=== PATIENT | male | born 1930 | race Caucasian/White ===

== ENCOUNTER 2017-02-04 10:49 | Inpatient (IN) | payer OTHER, MEDICARE ==
[~2017-02-04] VITALS: Ht 160 cm; Wt 72.6 kg
[~2017-02-04 10:49] MED LIST: ACTOS30 M1 PO; ALLOPURINOL300 M1 PO; ASPIR LOW81 MG PO; CHLORTHALIDONE25 M1 PO; CLONAZEPAM0.5 M2 PO; CLOPIDOGREL75 MG PO; COLACE100 MG PO; FERROUS SULFAT325 M2 PO; FLUTICASONE PRO16 GM NASB; FOLIC ACID PO; FOLIC ACID1 M1 PO; LASIX20 MG PO; LASIX40 M1 PO; LEVOXYL50 MCG PO; LISINOPRIL20 MG PO; MAGNESIUM500 M2 PO; METFORMIN HCL500 M2 PO; OMEPRAZOLE20 M2 PO; PREVACID30 M1 PO; PROCERA PO; SIMVASTATIN10 M1 PO; SIMVASTATIN20 MG PO; TYLENOL325 M1 PO; VITAMIN B12500 MCG PO; VITAMIN C1000 M1 PO; VITAMIN C500 M6 PO; VITAMIN C60 MG PO; WARFARIN SODIUM5 MG PO; ZESTRIL10 M1 PO
--- NOTE | 2017-02-04 10:52 | ED GI/GU/ABDOMINAL COMPLAINT ---
History of Present Illness General Chief Complaint: General Adult Stated Complaint: BIBA, CONSTIPATION Source: patient, old records, EMS, friend Exam Limitations: no limitations Vital Signs & Intake/Output Vital Signs & Intake/Output Vital Signs Date Time Temp Pulse Resp B/P B/P Pulse O2 O2 Flow FiO2 Mean Ox Delivery Rate 02/04 1352 98.3 60 16 122/65 09 Room Air 02/04 1244 98 Room Air 02/04 1058 97.1 74 17 128/61 94 Room Air Allergies Coded Allergies: NO KNOWN ALLERGIES (04/25/16) Reconcile Medications Allopurinol 300 MG TABLET 1 TAB PO DAILY GOUT (Reported) Clonazepam 0.5 MG TABLET 0.5 TAB PO BID ANXIETY (Reported) Fluticasone Propionate 50 MCG/ACTUATION SPRAY.SUSP 2 SPRAY NASB DAILY ALLERGIES (Reported) Folic Acid 1 MG TABLET 1 TAB PO DAILY VITAMIN SUPPORT (Reported) Levothyroxine Sodium (Levoxyl) 50 MCG TABLET 1 TAB PO DAILY THYROID (Reported ) Metformin HCl (Metformin HCl ER) 500 MG TAB.ER.24 1 TAB PO DAILY DIABETES ( Reported) Omeprazole 20 MG CAPSULE.DR 1 CAP PO DAILY GI (Reported) Pioglitazone HCl (Actos) 30 MG TABLET 1 TAB PO DAILY DIABETES (Reported) Polyethylene Glycol 3350 (Miralax) 17 GRAM POWD.PACK 17 GM PO DAILY PRN CONSTIPATION Simvastatin (Simvastatin*) 10 MG TABLET 1 TAB PO QPM CHOLESTEROL (Reported) Triage Nurses Notes Reviewed? yes Onset: Abrupt Duration: day(s): (3) Quality/Severity: mild, moderate Location: RECTAL No Modifying Factors: none Associated Symptoms: CONSTIPATION, BLOOD IN STOOL HPI: This is an 86-year-old male with history of A. fib, esophageal CA untreated who presents by ambulance from home for chief complaint of no bowel movement for at least 3 days. According to a family friend he reported blood in his stool last week. He denies any nausea or vomiting. He last ate this morning. He denies any changes appetite. No chest pressure as of breath. He states he is not passing any flatus from below. History of inguinal hernia repair but no other abdominal surgeries. Past History Travel History Traveled to [place] past 21 day No Medical History Any Pertinent Medical History? see below for history Neurological: dizziness, TIA, vertigo, PERIPHERAL NERVE DISEASE EENT: cataracts Cardiovascular: AFIB, hypertension, hyperlipidemia, mitral regurgitation, TR HEART MURMUR CARDIOVERSION Respiratory: pneumonia Gastrointestinal: hiatal hernia, ESOPHAGITIS diverticulosis coli hx colon polyps Hepatic: NONE Renal: RENAL FAILURE SYNDROME resolved post ACEI/Bactrim Musculoskeletal: gout Psychiatric: anxiety, depression, PANIC ATTACKS Endocrine: diabetes, hypothyroidism Blood Disorders: anemia, hx mixed Fe/B12 deficiency macrocytosis; ? 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 No Review of Systems Review of Systems Constitutional: Denies: chills, fever. EENTM: Reports: no symptoms. Respiratory: Denies: cough, short of breath, sputum production. Cardiovascular: Denies: chest pain, palpitations, peripheral edema, syncope. GI: Reports: abdominal pain, constipation. Genitourinary: Reports: no symptoms. Musculoskeletal: Reports: no symptoms. Skin: Reports: no symptoms. Neurological/Psychological: Denies: anxiety, ataxia. Hematologic/Endocrine: Reports: bleeding. Immunologic/Allergic: Reports: no symptoms. All Other Systems: Reviewed and Negative Physical Exam Physical Exam General Appearance: well developed/nourished, alert, awake, anxious, mild distress Head: atraumatic, normal appearance Eyes: Bilateral: PERRL, EOMI. Ears, Nose, Throat, Mouth: hearing grossly normal, moist mucous membrane Respiratory: normal breath sounds, chest non-tender, no respiratory distress Cardiovascular: regular rate/rhythm Peripheral Pulses: 2+ radial (R), 2+ radial (L) Gastrointestinal: soft, TYMPANIC, DISTENDED Rectal: BROWN STOOL, GUIAC NEGATIVE Neurologic/Psych: awake, alert, oriented x 3 Core Measures ACS in differential dx? No Severe Sepsis Present: No Septic Shock Present: No Progress Differential Diagnosis: bowel obstruction, metastatic disease Plan of Care: Orders Procedure Date/time Status Heart Healthy Diet 02/04 D Active Patient Data 02/04 144 Active Admit to inpatient 02/04 1427 Active Vital Signs 05/08 1427 Active Code Status 02/04 1427 Active LACTIC ACID 02/04 1355 Active Intake & Output 02/04 1343 Active URINALYSIS 02/04 105 Complete TROPONIN LEVEL 02/04 1055 Complete PARTIAL THROMBOPLASTIN TIME 02/04 105 Complete PROTHROMBIN TIME 02/04 105 Complete LACTIC ACID 02/04 105 Complete COMPREHENSIVE METABOLIC PANEL 02/04 1055 Complete CBC WITHOUT DIFFERENTIAL 02/04 1055 Complete EKG 02/04 105 Active TYPE & SCREEN (NOT X-MATCH) 02/04 105 Active Laboratory Tests 02/04/17 1335: Urine Color YEL, Urine Clarity CLEAR, Urine pH 7.0, Ur Specific [place] 1.010, Urine Protein NEG, Urine Ketones NEG, Urine Nitrite NEG, Urine Bilirubin NEG, Urine Urobilinogen 0.2, Ur Leukocyte Esterase NEG, Ur Microscopic SEDIMENT EXAMINED, Urine RBC 1-3, Urine WBC RARE, Ur Epithelial Cells RARE, Urine Hemoglobin TRACE-LYSED H, Urine Glucose NEG 02/04/17 1154: Anion Gap 14, Estimated GFR > 60, BUN/Creatinine Ratio 27.0 H, Glucose 187 H, Lactic Acid 1.6, Calcium 9.4, Total Bilirubin 0.7, AST 20, ALT 26, Alkaline Phosphatase 77, Troponin I 0.06, Total Protein 6.7, Albumin 4.0, Globulin 2.7, Albumin/Globulin Ratio 1.5, PT 10.5, INR 1.00, APTT 30, CBC w Diff NO MAN DIFF REQ, RBC 3.55 L, MCV 97.9 H, MCH 33.3 H, RDW 15.1 H, MPV 7.7, Gran % 83.6 H , Lymphocytes % 9.6 L, Monocytes % 6.7, Eosinophils % 0, Basophils % 0.1, Absolute Granulocytes 6.4, Absolute Lymphocytes 0.7 L, Absolute Monocytes 0.5, Absolute Eosinophils 0, Absolute Basophils 0, PUBS MCHC 34.0 12:57 pm ekg - failure to capture with pacemaker per dr sanchez CT - NO SBO NO ABDNORMAL BOWEL DIFFUSE DIVERTICULOSIS STABLE APPEARANCE PANC NO SIG INTERVAL CHANGE LEFT ADRENAL SMALL TO MOD STOOL BURDEN IN COLON 2:44 PM D/W HOSPITALIST AND DR SIN COVERING DR LEAL. ADMITTED TO TELEMETRY. DR WADDELL IN ED TO EVALUATE THE PATIENT. (ASHLYN NIETO,COMPA) Diagnostic Imaging: Viewed by Me: CT Scan. Discussed w/RAD: CT Scan. Radiology Impression: PATIENT: ZENY BELL PRESENT AGE: 86 PATIENT ACCOUNT NO: [id number] : [birth year] LOCATION: [facility] ORDERING PHYSICIAN: COMPA GOLDBERG MD SERVICE DATE: 02/04/17-3326 EXAM TYPE: CAT - CT ABD & PELVIS W IV CONTRAST EXAMINATION: CT ABDOMEN AND PELVIS WITH CONTRAST CLINICAL INFORMATION: Abdominal distention. No bowel movement for 4 days. Rule out small bowel obstruction. COMPARISON: Abdominal MRI of 06/22/2016. CT abdomen and pelvis of 04/25/2016. TECHNIQUE: Multidetector volumetric imaging was performed of the abdomen and pelvis before and after the IV administration of 95 mL of Optiray 320 intravenous contrast. Sagittal and coronal reformatted images were obtained on the technologist's workstation. DLP: 268.69 mGy-cm FINDINGS: LUNG BASES: Minimal bibasilar dependent atelectasis. Trace of right pleural effusion. Stable generalized cardiomegaly. No pericardial effusion. Small hiatal hernia. LIVER, GALLBLADDER, AND BILIARY TREE: The liver is normal in size, shape , and attenuation. No focal hepatic lesion or biliary ductal dilatation is present. The gallbladder is moderately contracted however there is no evidence of radiopaque stones or obvious pericholecystic inflammatory changes. PANCREAS: There is moderate atrophy of the pancreas. The pancreas is stable in appearance. Cystic changes in the pancreas are better seen on previous MRI. Overall there does not appear to be significant interval change in the appearance of the pancreas compared to previous CT of 04/25/2016. SPLEEN: Unremarkable. ADRENAL GLANDS: There is stable thickening of the right adrenal gland without discrete nodule. There is a 2.6 cm hypodense left adrenal nodule, previously 2.4 cm. KIDNEYS AND URETERS: The kidneys are normal in size, shape, and attenuation. No hydronephrosis, hydroureter, or calculi seen. No perinephric stranding. BLADDER: Unremarkable. GASTROINTESTINAL TRACT: The sigmoid colon and descending colon are significantly redundant and tortuous. Diffuse diverticulosis of the colon is noted without acute diverticulitis. Small to moderate volume stool is noted in the colon. No evidence of abnormal bowel dilatation. Small bowel loops are normal in caliber. The stomach is largely decompressed however otherwise grossly unremarkable. An appendix is normal. PERITONEAL CAVITY: There is no evidence of free intraperitoneal air or fluid. No inflammatory changes or nodularity seen in the omentum and mesentery. ABDOMINAL WALL: There are postsurgical changes of left renal hernia repair. No recurrent hernia. There is a small right inguinal hernia containing fat. LYMPH NODES: No evidence of pathologically enlarged lymph nodes. VASCULAR: The aortoiliac vessels are normal in caliber. There is mild calcific atherosclerosis of the aortoiliac vessels. The celiac axis, SMA and ESVIN are well patent. PELVIC VISCERA: Prostate is mildly enlarged. Normal seminal vesicles. OSSEOUS STRUCTURES: There is chronic moderate superior endplate fracture of L1. No acute or suspicious osseous abnormality is noted. Degenerative changes are noted throughout the spine with facet arthropathy in the lower lumbar spine. IMPRESSION: 1. Small to moderate stool burden in the colon. No evidence of abnormal bowel dilatation or bowel obstruction. Diffuse colonic diverticulosis without acute diverticulitis. 2. Stable appearance of the pancreas; the cystic pancreatic changes are better seen on the previous MRI. 3. No significant interval change in the left adrenal 2.6 cm nodule compared to study of 04/25/2016. DICTATED BY: KODI JOHNSTON MD DATE/TIME DICTATED:02/04/171311 SURGICAL ATTENDANT:STU DATE/TIME TRANSCRIBED:02/04/171311 CONFIDENTIAL, DO NOT COPY WITHOUT APPROPRIATE AUTHORIZATION. <Electronically signed in Other Vendor System> SIGNED BY: KODI JOHNSTON MD 02/04/17 1420 Initial ED EKG: pacemaker rhythm, SOME NON CAPTURED BEATS Prior EKG: unchanged Departure Departure Time of Disposition: 1506 Disposition: STILL A PATIENT Condition: Stable Clinical Impression Primary Impression: GI bleed Secondary Impressions: Abdominal pain, Hypokalemia, Pacemaker malfunction Referrals: TANIA CONNOLLY MD (PCP/Family) Departure Forms: Customer Survey General Discharge Information Prescriptions: Current Visit Scripts Polyethylene Glycol 3350 (Miralax) 17 GM PO DAILY PRN CONSTIPATION 30 Days Admission Note Spoke With: CHRISSY PACHECO MD Documentation of Exam: Documentation of any treatments & extenuating circumstances including Concerns Regarding Discharge (functional status, medication knowledge or non-compliance, living conditions, etc.) that warrant an admission rather than observation: [ TELE MONITOR, POTASSIUM REPLACEMENT, MONITOR I/O, CARDIOLOGY CONSULT DR SIN CALLED (COVERING DR LEAL), PACEMAKER INTERROGATION, BOWEL REGIMEN]
--- NOTE | 2017-02-04 11:20 | NUR ---
86 YEAR OLD MALE TO ER VIA AMBULANCE FROM HIS HOME WITH COMPLAINTS OF INCREASED WEAKNESS AND RECTAL BLEEDING. PT ARRIVES ALERT AND ORIENTED , BP 125/61 AND PACED ON MONITOR. DENIES SOB O2 SAT 96 % ON RA. COLOR WNL. PT HAS A HISTORY OF ESOPHAGEAL CANCER THAT IS NOT BEING TREATED, DENIES ANY DIFFICULTY SWALLOWING , APPETITE HAS BEEN UP AND DOWN. ABD NOTED TO BE FIRM AND DISTENDED , UNSURE OF WHEN HIS LAST BM WAS, STATES THAT HE NOTED ALOT OF LEONEL BLOOD WHEN HE WENT IN THE BATHROOM OVER THE PAST COUPLE OF WEEKS, PT DID NOT VERBALIZE THIS TO ANYONE , STATES THAT HE HAS BEEN CLEANING IT HIMSELF. PT LIVES ON HIS OWN AND HAS AN AIDE 1X WEEK. DENIES URINARY PROBLEMS.PT IS UNSURE IF HE IS ON THINNERS. PT NOTED TO BE VERY ANXIOUS AND STARTS TO CRY WHEN HE TALKS ABOUT HIS WHO HAS . EMOTIONAL SUPORT PROVIDED AND FAMILY FRIENDS AT BEDSIDE
--- NOTE | 2017-02-04 11:22 | NUR ---
REPORT GIVEN TO JUANIS HALL
--- NOTE | 2017-02-04 11:58 | NUR ---
BLOOD DRAWN AND SENT
[2017-02-04 12:06] LABS: ABSOLUTE BASOPHIL COUNT 0 /CUMM (0.0-0.2); ABSOLUTE EOSINOPHIL COUNT 0 /CUMM (0.0-0.7); ABSOLUTE GRANULOCYTE CT 6.4 /CUMM (1.4-6.5); ABSOLUTE LYMPH COUNT 0.7 /CUMM (1.2-3.4); ABSOLUTE MONOCYTE COUNT 0.5 /CUMM (0.10-0.60); BASOPHIL % 0.1 % (0.0-2.0); EOSINOPHIL % 0 % (0-5); HEMATOCRIT 34.7 % (42-52); MEAN CORPUSCULAR HGB 33.3 PG (27.0-31.0); MEAN CORPUSCULAR VOLUME 97.9 FL (80.0-94.0); MEAN PLATELET VOLUME 7.7 FL (7.4-10.4); PLATELET COUNT 241 /CUMM (130-400); RBC DISTRIBUTION WIDTH 15.1 % (11.5-14.5); RED BLOOD CELL CT 3.55 /CUMM (4.70-6.10); WHITE BLOOD CELL COUNT 7.6 /CUMM (4.8-10.8)
[2017-02-04 12:13] LABS: PT 10.5 SEC (9.4-12.5); PTT 30 SEC (25-37)
--- NOTE | 2017-02-04 12:21 | NUR ---
TYPE AND SCREEN HEMOLYZED
[2017-02-04 12:30] LABS: GRANULOCYTE % 83.6 % (42.2-75.2)
--- NOTE | 2017-02-04 12:31 | NUR ---
CRITICAL TEST RESULTS [id number] ZENY BELL C 86 M TESTS AND RESULTS: POTASSIUM 2.5 Results received and read back by: JUANIS FOX Results received date and time: 02/04/17 1232 The following provider was notified of the results, and read the results back: DR. GOLDBERG Notified date and time: 02/04/17 at 1232
--- NOTE | 2017-02-04 12:45 | NUR ---
FRIEND MAHI'S NUMBER FOR [employer]IED COMMUNICATIONS ENGINEER [phone] HOME [phone] CELL PLEASE UPDATE WITH POC
--- NOTE | 2017-02-04 12:55 | NUR ---
DGT CONCERNED THAT PT SHOULD NOT BE LIVING ALONE AND REQUEST THAT CONT. CARE GET INVOLVED FOR POSSIBLE PLACEMENT, IF POSSIBLE [facility] OR [facility] PLEASE CALL DAUGHTER CHRISTAL [phone]
--- NOTE | 2017-02-04 13:18 | NUR ---
PT'S FAMILY MEMBERS TOOK ALL CLOTHES HOME
--- NOTE | 2017-02-04 14:20 | CT SCAN REPORT ---
EXAMINATION: CT ABDOMEN AND PELVIS WITH CONTRAST CLINICAL INFORMATION: Abdominal distention. No bowel movement for 4 days. Rule out small bowel obstruction. COMPARISON: Abdominal MRI of 06/22/2016. CT abdomen and pelvis of 04/25/2016. TECHNIQUE: Multidetector volumetric imaging was performed of the abdomen and pelvis before and after the IV administration of 95 mL of Optiray 320 intravenous contrast. Sagittal and coronal reformatted images were obtained on the technologist's workstation. DLP: 268.69 mGy-cm FINDINGS: LUNG BASES: Minimal bibasilar dependent atelectasis. Trace of right pleural effusion. Stable generalized cardiomegaly. No pericardial effusion. Small hiatal hernia. LIVER, GALLBLADDER, AND BILIARY TREE: The liver is normal in size, shape, and attenuation. No focal hepatic lesion or biliary ductal dilatation is present. The gallbladder is moderately contracted however there is no evidence of radiopaque stones or obvious pericholecystic inflammatory changes. PANCREAS: There is moderate atrophy of the pancreas. The pancreas is stable in appearance. Cystic changes in the pancreas are better seen on previous MRI. Overall there does not appear to be significant interval change in the appearance of the pancreas compared to previous CT of 04/25/2016. SPLEEN: Unremarkable. ADRENAL GLANDS: There is stable thickening of the right adrenal gland without discrete nodule. There is a 2.6 cm hypodense left adrenal nodule, previously 2.4 cm. KIDNEYS AND URETERS: The kidneys are normal in size, shape, and attenuation. No hydronephrosis, hydroureter, or calculi seen. No perinephric stranding. BLADDER: Unremarkable. GASTROINTESTINAL TRACT: The sigmoid colon and descending colon are significantly redundant and tortuous. Diffuse diverticulosis of the colon is noted without acute diverticulitis. Small to moderate volume stool is noted in the colon. No evidence of abnormal bowel dilatation. Small bowel loops are normal in caliber. The stomach is largely decompressed however otherwise grossly unremarkable. An appendix is normal. PERITONEAL CAVITY: There is no evidence of free intraperitoneal air or fluid. No inflammatory changes or nodularity seen in the omentum and mesentery. ABDOMINAL WALL: There are postsurgical changes of left renal hernia repair. No recurrent hernia. There is a small right inguinal hernia containing fat. LYMPH NODES: No evidence of pathologically enlarged lymph nodes. VASCULAR: The aortoiliac vessels are normal in caliber. There is mild calcific atherosclerosis of the aortoiliac vessels. The celiac axis, SMA and ESVIN are well patent. PELVIC VISCERA: Prostate is mildly enlarged. Normal seminal vesicles. OSSEOUS STRUCTURES: There is chronic moderate superior endplate fracture of L1. No acute or suspicious osseous abnormality is noted. Degenerative changes are noted throughout the spine with facet arthropathy in the lower lumbar spine. IMPRESSION: 1. Small to moderate stool burden in the colon. No evidence of abnormal bowel dilatation or bowel obstruction. Diffuse colonic diverticulosis without acute diverticulitis. 2. Stable appearance of the pancreas; the cystic pancreatic changes are better seen on the previous MRI. 3. No significant interval change in the left adrenal 2.6 cm nodule compared to study of 04/25/2016.
--- NOTE | 2017-02-04 15:47 | History & Physical ---
MILTON MONTES 02/04/17 1546: General Information and HPI MD Statement: I have seen and personally examined ZENY BELL and documented this H&P. The patient is a 86 year old M who presented with a patient stated chief complaint of []. Source of Information: patient, old records Exam Limitations: unable to give history, poor historian History of Present Illness: Mr Bell is a 86 yr old man who was known to be in his usual state of health unitl 2 wks ago. He has a PMH of Chronic Afib ( tachy-vanessa ) not on any AC due to GI bleed(diverticular bleed), s/p single lead pacemaker implantation(pt has chronic afib), valvular heart disease, uncharecterized pancreatic lesion. He came to [place] ER w/ a chief concern of brbpr, constipation x 2-3 wks. As per the pt, who is a poor historian and ER notes, Mr Bell had constipation x 2-3 wks, associated w/ infrequent bowel movements associated w/ brbpr. Unclear history of the nature of brbpr, volume or other characteristics. Reported decreased po intake in the last few weeks. WHen evaluated at ER, he was found to have had pacemaker dysfunction, and was admitted for evaluation. No chest pain, SOB. No lightheadedness, or dizziness. No bladder or bowel disturbances. No nausea, vomiting or abdominal pain. Reported abdominal distention. Sees Dr. Lopez regularly, and unclear history for other ROS. Allergies/Medications Allergies: Coded Allergies: NO KNOWN ALLERGIES (04/25/16) Home Med list Allopurinol 300 MG TABLET 1 TAB PO DAILY GOUT (Reported) Chlorthalidone 25 MG TABLET 1 TAB PO DAILY HEART (Reported) Clonazepam 0.5 MG TABLET 0.5 TAB PO BID ANXIETY (Reported) Fluticasone Propionate 50 MCG/ACTUATION SPRAY.SUSP 2 SPRAY [place] DAILY ALLERGIES (Reported) Folic Acid 1 MG TABLET 1 TAB PO DAILY VITAMIN SUPPORT (Reported) Levothyroxine Sodium (Levoxyl) 50 MCG TABLET 1 TAB PO DAILY THYROID (Reported ) Metformin HCl (Metformin HCl ER) 500 MG TAB.ER.24 1 TAB PO DAILY DIABETES ( Reported) Omeprazole 20 MG CAPSULE. 1 CAP PO DAILY GI (Reported) Pioglitazone HCl (Actos) 30 MG TABLET 1 TAB PO DAILY DIABETES (Reported) Simvastatin (Simvastatin*) 10 MG TABLET 1 TAB PO QPM CHOLESTEROL (Reported) Past History Travel History Traveled to [place] past 21 day No Medical History Neurological: dizziness, TIA, vertigo, PERIPHERAL NERVE DISEASE EENT: cataracts Cardiovascular: AFIB, hypertension, hyperlipidemia, mitral regurgitation, TR HEART MURMUR CARDIOVERSION Respiratory: pneumonia Gastrointestinal: hiatal hernia, ESOPHAGITIS diverticulosis coli hx colon polyps Hepatic: NONE Renal: RENAL FAILURE SYNDROME resolved post ACEI/Bactrim Musculoskeletal: gout Psychiatric: anxiety, depression, PANIC ATTACKS Endocrine: diabetes, hypothyroidism Blood Disorders: anemia, hx mixed Fe/B12 deficiency macrocytosis; ? 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 grandson & VNS Services at Home: None Primary Language: Vincentian ETOH Use: denies use Illicit Drug Use: denies illicit drug use Living Will? no Power of Refractive Surgeon/HCP? no Functional Ability ADLs Independent: dressing, eating, toileting, bathing. Ambulation: independent IADLs Independent: food prep, telephone. Unknown: shopping, housework, finances, transportation, medication admin. Review of Systems Review of Systems Constitutional: Reports: see HPI. Denies: chills, fever. EENTM: Denies: blurred vision, double vision. Cardiovascular: Denies: chest pain, palpitations. Respiratory: Denies: cough, orthopnea, short of breath. GI: Reports: distention, bloody stool, changes in stool. Denies: abdominal pain, constipation, vomiting. Genitourinary: Denies: discharge, hematuria. Musculoskeletal: Denies: back pain. Skin: Denies: change in skin color. Neurological/Psychological: Denies: anxiety, numbness, pre-existing deficit. Hematologic/Endocrine: Denies: bruising. Exam & Diagnostic Data Last 24 Hrs of Vital Signs/I&O Vital Signs Date Time Temp Pulse Resp B/P B/P Pulse O2 O2 Flow FiO2 Mean Ox Delivery Rate 02/04 1352 98.3 60 16 122/65 09 Room Air 02/04 1244 98 Room Air 02/04 1058 97.1 74 17 128/61 94 Room Air Intake & Output 02/04 1600 02/04 0800 02/04 0000 Intake Total Output Total 850 Balance -850 Output, Urine 850 Patient 135 lb Weight Physical Exam General Appearance Alert, Oriented X3, Cooperative, No Acute Distress Skin No Rashes, No Breakdown Skin Temp/Moisture Exam: Warm/Dry Sepsis Skin Exam (color): Normal for Ethnicity HEENT Atraumatic, PERRLA, EOMI, oral ulcers multiple mucous membranes dry Neck Supple, No JVD, No thryomegaly, +2 Carotid Pulse wo Bruit Lymphatic Axillary nl, Cervical nl Cardiovascular Regular Rate, Normal S1, Normal S2, No Murmurs Lungs Clear to Auscultation, Normal Air Movement Abdomen Normal Bowel Sounds, Soft, No Tenderness, No Hepatospenomegaly, No Masses, distention w/ no masses Neurological Normal Speech, Strength at 5/5 X4 Ext, Normal Tone, Sensation Intact, Cranial Nerves 3-12 NL, Reflexes 2+ Extremities No Clubbing, No Cyanosis, No Edema, Normal Pulses Vascular Normal Pulses, Pulses Symmetrical Assessment/Plan Assessment: He is an older man w/ a PMH of Afib ( not on AC sec to gi bleed) is being evaluated for hypokalemia, cardiac pacemaker abnormality. At the time of admission, pt had vitals temp 97.1, NH 74, RR 17, BP 128/61m 94% RA. Lab findigs indicate, WBC 7.6, Hb 11.8, MCV 97.9 ( elevated ), platelets 241 , Na 133, K 2.5 ( very low ). Sodium bicarbonate 32. Normal kidney function BUN 27, Sr cr 1.0, Normal liver function AST 20, ALT 26. 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 Failure to capture. Echocardiogram- 10/14 Normal left ventricular ejection fraction estimated at 55- 60%. Right ventricular systolic pressure estimated to be elevated at 48 mmHg. Differntial diagnosis: 1. Abnormal paced rhythm 2. Hypokalemia 3. GI bleed Below is the problem list- 1. Constipation w/ brbpr- Hb 11.8. Repeat CBC 12hrs. Pt has a h/o diverticulitis. Senna. GI consult for advice on outpatient evaluation. Check vitals regularly. 2. Abnormal paced rhythm- likely due to hypokalemia, or loss of capture. Single paced rhythm, as the pt has chronic atrial fib. Pacemaker interrogation in the am. Admit in telemetry for monitoring abnormal rhythm. 3. Hypokalemia- likely due to nutrition. Check magnesium. Replete accordingly aggressively. 4. Diabetes- Accuchecks. Novolog sliding scale. 5. DVT prophylaxis- ALPs. 6. History of pancreatic cyst, and GI malignancy, Macrocytosis- Last vitamin B12 951, MMA 178 ( 06/15) h/o myelodysplastic syndrome. Recheck vitamin B12. Discuss the treatment options. As Ranked By This Provider Problem List: 1. Pacemaker malfunction 2. Hypokalemia 3. Abdominal pain 4. Malnutrition 5. Pancreatic cyst Core Measures/Miscellaneous Acute Coronary Syndrome ACS Diagnosis: No Cerebrovascular Accident CVA/TIA Diagnosis: No Congestive Heart Failure CHF Diagnosis: No Venous Thromboembolism VTE Risk Factors: Acute medical illness, Age > 40 [facility] prophylaxis d/t: No contraindications No VTE Pharm Prophylaxis d/t: No contraindications VTE Diagnosis: No VTE Type: NONE VTE Confirmed by (Test): NONE Severe Sepsis Severe Sepsis Present: No Septic Shock Septic Shock Present: No Miscellaneous Documentation Attending Case Discussed With: INEZ SARAH MD Primary Care Physician: TANIA CONNOLLY MD Patient sees these Specialists John NIETO Level of Patient Care: Telemetry APOORVA JOHNSTON MD 02/04/17 1641: Resident Review Statement Resident Statement: examined this patient, discussed with risk management internship, agreed with risk management internship, reviewed EMR data (avail), reviewed images, amended to note Other Findings: This is 86-year-old male with past medical history of lower GI bleed presumably diverticular, paroxysmal A. 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 MDS, type 2 diabetes, depression, hypertension, hyperlipidemia, GERD, remote history of TIA was sent in from home by visiting nurse after patient found INEZ SARAH 02/05/17 1440: Attending Review Statement Attending Statement Attending MD Statement: examined this patient, discuss w/resident/PA/BREAK OFF WORKER, agreed w/resident/PA/BREAK OFF WORKER, reviewed EMR data (avail), discussed with nursing Attending Assessment/Plan: Agree with the above assessment and plan. Please see my separate attending note for more details.
--- NOTE | 2017-02-04 17:47 | NUR ---
PT IS GOING TO 171-1
--- NOTE | 2017-02-04 18:21 | Admission Certification ---
Admission Certification Certification Statement - As attending physician, I certify that at the time of - admission, based on clinical presentation, severity of - symptoms, need for further diagnostic testing and - therapeutic interventions, and risk of adverse outcomes - without in-hospital treatment, in my clinical assessment, - this patient requires an acute hospital stay for a minimum - of two nights or longer. I have also considered psychsocial - factors such as support system, advanced age, financial - issues, cognitive issues, and failed out-patient treatments, - past re-admission history, safety of patient, and lack of - compliance as applicable. Specific rationale supporting this admission is: pacemaker malfunction and GI bleed
--- NOTE | 2017-02-04 18:25 | PN- Att Addend ---
Attending MD Review Statement Attending Statement Attending MD Statement: examined this patient, discuss w/resident/PA/SHIPPING PACKER, agreed w/resident/PA/SHIPPING PACKER, discussed with family, reviewed EMR data (avail), discussed w/ nursing Attending Assessment/Plan: Laboratory Tests 02/04/17 1335: Urine Color YEL, Urine Clarity CLEAR, Urine pH 7.0, Ur Specific [place] 1.010, Urine Protein NEG, Urine Ketones NEG, Urine Nitrite NEG, Urine Bilirubin NEG, Urine Urobilinogen 0.2, Ur Leukocyte Esterase NEG, Ur Microscopic SEDIMENT EXAMINED, Urine RBC 1-3, Urine WBC RARE, Ur Epithelial Cells RARE, Urine Hemoglobin TRACE-LYSED H, Urine Glucose NEG 02/04/17 1154: Anion Gap 14, Estimated GFR > 60, BUN/Creatinine Ratio 27.0 H, Glucose 187 H, Lactic Acid 1.6, Calcium 9.4, Total Bilirubin 0.7, AST 20, ALT 26, Alkaline Phosphatase 77, Troponin I 0.06, Total Protein 6.7, Albumin 4.0, Globulin 2.7, Albumin/Globulin Ratio 1.5, PT 10.5, INR 1.00, APTT 30, CBC w Diff NO MAN DIFF REQ, RBC 3.55 L, MCV 97.9 H, MCH 33.3 H, RDW 15.1 H, MPV 7.7, Gran % 83.6 H , Lymphocytes % 9.6 L, Monocytes % 6.7, Eosinophils % 0, Basophils % 0.1, Absolute Granulocytes 6.4, Absolute Lymphocytes 0.7 L, Absolute Monocytes 0.5, Absolute Eosinophils 0, Absolute Basophils 0, PUBS MCHC 34.0 Vital Signs Date Time Temp Pulse Resp B/P B/P Pulse O2 O2 Flow FiO2 Mean Ox Delivery Rate 02/04 1812 97.4 60 16 125/62 96 Room Air 02/04 1352 98.3 60 16 122/65 09 Room Air 02/04 1244 98 Room Air 02/04 1058 97.1 74 17 128/61 94 Room Air 86-year-old male with past medical history of diabetes, hypertension, atrial fibrillation not on 90 correlation secondary to fall and GI bleed, permanent pacemaker, TIAs in past, who was admitted with chief complaint of fatigue and loss of appetite as well as complaining of some rectal bleeding over the last few days prior to admission. Patient in emergency room was found to be guaiac negative. Patient is giving different history to different people in ER and is not a very reliable historian. I discussed with patient's grandson Jarad in ER and he also agrees with him not being a very reliable historian. He also told that his mother is looking for an assisted living place for Mr. Fraire due to concerns for his ability to take care of himself at home. In emergency room patient was also found to have hypokalemia with potassium of 2.5. Also patient said that he has been throwing up whatever he eats and has been constipated and hasn't had any bowel movement for the last 1-2 weeks. Pacemaker malfunction-reviewed the EKGs and we will consult to cardiology for pacemaker interrogation. It looks like patient is being intermittently paced. Questionable GI bleed we will get gastroenterology to see him. I'll repeat his hemoglobin tonight and again in the morning. Hypokalemia we will replace his potassium aggressively and recheck in the morning.
--- NOTE | 2017-02-04 18:43 | NUR ---
REPORT CALLED TO [facility] ON 1NO. TRANSPORT AWARE NARINDER PT IS TRANSPORT WITH RN
--- NOTE | 2017-02-04 19:02 | Cons- Cardiology ---
General Information and HPI Consulting Request Date of Consult: 02/04/17 Requested By: KEARA NIETO,INEZ Amin Reason for Consult: Pacemaker non-capture History of Present Illness: The patient is an 85-year-old male with history of diabetes mellitus, GI bleed him a paroxysmal atrial fibrillation, MDS who is followed by Dr. Lopez. He has a history of chronic atrial fibrillation he underwent pacemaker implantation in June 2016 for slow ventricular rate with pauses of greater than 5 seconds. He presents with complaint of fatigue and loss of appetite. He complains of recent rectal bleeding. He is noted to be significant only hypokalemic with potassium of 2.5. EKG shows intermittent non-capture of his pacemaker. No chest pain. No shortness of breath. No diaphoresis. No syncope. No orthopnea. Allergies/Medications Allergies: Coded Allergies: NO KNOWN ALLERGIES (04/25/16) Home Med List: Allopurinol 300 MG TABLET 1 TAB PO DAILY GOUT (Reported) Chlorthalidone 25 MG TABLET 1 TAB PO DAILY HEART (Reported) Clonazepam 0.5 MG TABLET 0.5 TAB PO BID ANXIETY (Reported) Fluticasone Propionate 50 MCG/ACTUATION SPRAY.SUSP 2 SPRAY NASB DAILY ALLERGIES (Reported) Folic Acid 1 MG TABLET 1 TAB PO DAILY VITAMIN SUPPORT (Reported) Levothyroxine Sodium (Levoxyl) 50 MCG TABLET 1 TAB PO DAILY THYROID (Reported ) Metformin HCl (Metformin HCl ER) 500 MG TAB.ER.24 1 TAB PO DAILY DIABETES ( Reported) Omeprazole 20 MG CAPSULE.DR 1 CAP PO DAILY GI (Reported) Pioglitazone HCl (Actos) 30 MG TABLET 1 TAB PO DAILY DIABETES (Reported) Simvastatin (Simvastatin*) 10 MG TABLET 1 TAB PO QPM CHOLESTEROL (Reported) Current Medications: Current Medications Sig/Sari Start time Last Medication Dose Route Stop Time Status Admin Allopurinol 300 MG DAILY 02/05 1000 AC PO Atorvastatin Calcium 5 MG 1700 02/04 1700 AC PO Chlorthalidone 25 MG DAILY 02/05 1000 AC PO Folic Acid 1 MG DAILY 02/05 1000 AC PO Insulin Aspart 0 TIDAC 02/04 1700 AC SC Levothyroxine Sodium 0.05 MG DAILY AC 02/05 0700 AC PO Pantoprazole Sodium 0 .STK-MED ONE 02/04 1819 DC IV Pantoprazole Sodium 40 MG DAILY 02/04 1611 AC 02/04 IV 1740 Potassium Chloride 40 MEQ ONCE ONE 02/04 1800 DC PO 05/08 1801 Potassium Chloride 0 .STK-MED ONE 02/04 1606 DC PO Potassium Chloride 40 MEQ ONCE ONE / 1500 DC 05/08 PO 05/08 1501 1546 Potassium Chloride 10 MEQ ONCE ONE 05/ 1245 DC 05/08 IV 05/08 1246 1313 Potassium Chloride 10 MEQ ONCE ONE / 1245 DC 05/08 IV 05/ 1246 1404 Sodium Chloride 500 ML BOLUS ONE 02/04 1300 DC 05/08 IV 05/08 1359 1505 Review of Systems Review of Systems: No fever. No chills. No rash. No tremor. All other systems were reviewed, and were noted to be negative. Past History Travel History Traveled to [place] past 21 day No Medical History Neurological: dizziness, TIA, vertigo, PERIPHERAL NERVE DISEASE EENT: cataracts Cardiovascular: AFIB, hypertension, hyperlipidemia, mitral regurgitation, TR HEART MURMUR CARDIOVERSION Respiratory: pneumonia Gastrointestinal: hiatal hernia, ESOPHAGITIS diverticulosis coli hx colon polyps Hepatic: NONE Renal: RENAL FAILURE SYNDROME resolved post ACEI/Bactrim Musculoskeletal: gout Psychiatric: anxiety, depression, PANIC ATTACKS Endocrine: diabetes, hypothyroidism Blood Disorders: anemia, hx mixed Fe/B12 deficiency macrocytosis; ? 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 grandson & VNS Services at Home: None Primary Language: Frisian ETOH Use: denies use Illicit Drug Use: denies illicit drug use Living Will? no Power of Greeting Card Maker/HCP? no Functional Ability ADLs Independent: dressing, eating, toileting, bathing. Ambulation: independent IADLs Independent: food prep, telephone. Unknown: shopping, housework, finances, transportation, medication admin. ECHO Results (as available) Report: CONCLUSIONS 1. Moderate aortic sclerosis is present with trivial aortic insufficiency. 2. Mitral leaflet thickening is present with mild mitral insufficiency and mild to moderate left atrial dilatation. 3. The left atrial appendage is normal in size with no evidence of mass or thrombus. 4. The pulmonary venous anatomy is normal bilaterally with normal doppler profiles. 5. The left ventricular chamber size is normal with a normal ejection fraction. 6. A small left pleural effusion is present. 7. Mild dilatation of the right heart chambers is present with mild to moderate tricuspid insufficiency and mild to moderate pulmonic insufficiency with mild pulmonary hypertension and an estimated RV systolic pressure of 48 mmHg. 8. There is no evidence of atrial level shunt. 9. Grade II to III atheromatous plaque is noted in the thoracic aorta. Immediately following the completion of the ZAN, while still under Propofol anesthesia, the patient was placed in the supine position. 200 joules of synchronized energy was administered. The patient reverted to NSR with first degree AVB and episodes of Wenkeback noted. There were no complications noted and the patient was discharged in stable condition. He will continue the same medications and followup in the office in one week. Exam & Diagnostic Data Vital Signs and I&O Vital Signs Date Time Temp Pulse Resp B/P B/P Pulse O2 O2 Flow FiO2 Mean Ox Delivery Rate 02/04 1812 97.4 60 16 125/62 96 Room Air 02/04 1352 98.3 60 16 122/65 09 Room Air 02/04 1244 98 Room Air 02/04 1058 97.1 74 17 128/61 94 Room Air Intake & Output 02/04 1600 02/04 0800 /08 0000 02/03 1600 02/03 0800 02/03 0000 Intake Total Output Total 850 Balance -850 Output, Urine 850 Patient 135 lb Weight Physical Exam: Gen: The patient is in no acute distress HEENT: Normal nose, ears, and oropharynx. Pupils equal bilaterally. Conjunctiva normal. Neck: Supple with no JVD, no masses, and no thyromegaly Lungs: Clear to auscultation with normal respiratory effort Heart: Irregular irregular, S1, S2, 2/6 systolic murmur. No peripheral edema, 2 + pulses in the lower extremities bilaterally Abdomen: Soft, nontender, no masses. No hepatomegaly. No splenomegaly Extremities: No clubbing or cyanosis. Normal muscle strength in the upper and lower extremities Skin: Normal skin turgor with no skin ulcers or lesions noted. Neuro: Cranial nerves intact. Sensation intact Psych: Alert and oriented 3 with appropriate affect Labs/Quan Results: Laboratory Tests 02/04 02/04 1335 1154 Chemistry Sodium (137 - 145 mmol/L) 133 L Potassium (3.5 - 5.1 mmol/L) 2.5 *L Chloride (98 - 107 mmol/L) 87 L Carbon Dioxide (22 - 30 mmol/L) 32 H Anion Gap (5 - 16) 14 BUN (9 - 20 mg/dL) 27 H Creatinine (0.7 - 1.2 mg/dL) 1.0 Estimated GFR (>60 ml/min) > 60 BUN/Creatinine Ratio (7 - 25 %) 27.0 H Glucose (65 - 99 mg/dL) 187 H Lactic Acid (0.7 - 2.1 mmol/L) 1.6 Calcium (8.4 - 10.2 mg/dL) 9.4 Total Bilirubin (0.2 - 1.3 mg/dL) 0.7 AST (17 - 59 U/L) 20 ALT (21 - 72 U/L) 26 Alkaline Phosphatase (< 127 U/L) 77 Troponin I (<0.11 ng/ml) 0.06 Total Protein (6.3 - 8.2 g/dL) 6.7 Albumin (3.5 - 5.0 g/dL) 4.0 Globulin (1.9 - 4.2 gm/dL) 2.7 Albumin/Globulin Ratio (1.1 - 2.2 %) 1.5 Coagulation PT (9.4 - 12.5 SEC) 10.5 INR (0.90 - 1.17) 1.00 APTT (25 - 37 SEC) 30 Hematology CBC w Diff NO MAN DIFF REQ WBC (4.8 - 10.8 /CUMM) 7.6 RBC (4.70 - 6.10 /CUMM) 3.55 L Hgb (14.0 - 18.0 G/DL) 11.8 L Hct (42 - 52 %) 34.7 L MCV (80.0 - 94.0 FL) 97.9 H MCH (27.0 - 31.0 PG) 33.3 H RDW (11.5 - 14.5 %) 15.1 H Plt Count (130 - 400 /CUMM) 241 MPV (7.4 - 10.4 FL) 7.7 Gran % (42.2 - 75.2 %) 83.6 H Lymphocytes % (20.5 - 51.1 %) 9.6 L Monocytes % (1.7 - 9.3 %) 6.7 Eosinophils % (0 - 5 %) 0 Basophils % (0.0 - 2.0 %) 0.1 Absolute Granulocytes (1.4 - 6.5 /CUMM) 6.4 Absolute Lymphocytes (1.2 - 3.4 /CUMM) 0.7 L Absolute Monocytes (0.10 - 0.60 /CUMM) 0.5 Absolute Eosinophils (0.0 - 0.7 /CUMM) 0 Absolute Basophils (0.0 - 0.2 /CUMM) 0 PUBS MCHC (33.0 - 37.0 G/DL) 34.0 Urines Urine Color (YEL,AMB,STR) YEL Urine Clarity (CLEAR) CLEAR Urine pH (5.0 - 8.0) 7.0 Ur Specific [place] (1.001 - 1.035) 1.010 Urine Protein (NEG,<30 MG/DL) NEG Urine Ketones (NEG) NEG Urine Nitrite (NEG) NEG Urine Bilirubin (NEG) NEG Urine Urobilinogen (0.1 - 1.0 EU/dl) 0.2 Ur Leukocyte Esterase (NEG) NEG Ur Microscopic SEDIMENT EXAMINED Urine RBC (0 - 5 /HPF) 1-3 Urine WBC (0 - 2 /HPF) RARE Ur Epithelial Cells (NONE,FEW) RARE Urine Hemoglobin (NEG) TRACE-LYSED H Urine Glucose (N MG/DL) NEG Diagnostic Data EKG Results EKG tracing is independently reviewed, and reveals atrial fibrillation with ventricular pacing. Intermittent non-capture of pacemaker is noted Other Results CT scan of the abdomen and pelvis: 1. Small to moderate stool burden in the colon. No evidence of abnormal bowel dilatation or bowel obstruction. Diffuse colonic diverticulosis without acute diverticulitis. 2. Stable appearance of the pancreas; the cystic pancreatic changes are better seen on the previous MRI. 3. No significant interval change in the left adrenal 2.6 cm nodule compared to study of 04/25/2016. ZAN 10/01/14: 1. Moderate aortic sclerosis is present with trivial aortic insufficiency. 2. Mitral leaflet thickening is present with mild mitral insufficiency and mild to moderate left atrial dilatation. 3. The left atrial appendage is normal in size with no evidence of mass or thrombus. 4. The pulmonary venous anatomy is normal bilaterally with normal doppler profiles. 5. The left ventricular chamber size is normal with a normal ejection fraction. 6. A small left pleural effusion is present. 7. Mild dilatation of the right heart chambers is present with mild to moderate tricuspid insufficiency and mild to moderate pulmonic insufficiency with mild pulmonary hypertension and an estimated RV systolic pressure of 48 mmHg. 8. There is no evidence of atrial level shunt. 9. Grade II to III atheromatous plaque is noted in the thoracic aorta. Immediately following the completion of the ZAN, while still under Propofol anesthesia, the patient was placed in the supine position. 200 joules of synchronized energy was administered. The patient reverted to NSR with first degree AVB and episodes of Wenkeback noted. There were no complications noted and the patient was discharged in stable condition. He will continue the same medications and followup in the office in one week. Assessment/Plan Assessment/Plan Assessment: 1. Permanent pacemaker with intermittent non-capture, likely exacerbated by hypokalemia 2. Hypokalemia, likely due to chlorthalidone 3. Paroxysmal atrial fibrillation, not anticoagulated because of GI bleed Plan: * Monitor on telemetry * Echocardiogram * Supplement potassium to greater than 4.0. Recheck potassium in evening. * Check magnesium level, and supplement as needed * Discontinue chlorthalidone, since is likely causing hypokalemia * Pacemaker interrogation for evaluation of intermittent failure to capture Consult Acknowledgment - Thank you for your consult request.
[2017-02-04 19:36] VITALS: BP 121/66
[2017-02-04 21:50] LABS: ABSOLUTE BASOPHIL COUNT 0 /CUMM (0.0-0.2); ABSOLUTE EOSINOPHIL COUNT 0 /CUMM (0.0-0.7); ABSOLUTE GRANULOCYTE CT 5.9 /CUMM (1.4-6.5); ABSOLUTE LYMPH COUNT 0.9 /CUMM (1.2-3.4); ABSOLUTE MONOCYTE COUNT 0.6 /CUMM (0.10-0.60); BASOPHIL % 0.1 % (0.0-2.0); EOSINOPHIL % 0 % (0-5); GRANULOCYTE % 79.1 % (42.2-75.2); HEMATOCRIT 36.5 % (42-52); MEAN CORPUSCULAR HGB 33.4 PG (27.0-31.0); MEAN CORPUSCULAR HGB CONC 33.3 G/DL (33.0-37.0); MEAN CORPUSCULAR VOLUME 100.3 FL (80.0-94.0); MEAN PLATELET VOLUME 8.2 FL (7.4-10.4); PLATELET COUNT 264 /CUMM (130-400); RBC DISTRIBUTION WIDTH 15.5 % (11.5-14.5); RED BLOOD CELL CT 3.63 /CUMM (4.70-6.10); WHITE BLOOD CELL COUNT 7.5 /CUMM (4.8-10.8)
[2017-02-05 00:25] VITALS: BP 110/70
[2017-02-05 07:50] VITALS: BP 120/70
[2017-02-05 08:22] LABS: ABSOLUTE BASOPHIL COUNT 0 /CUMM (0.0-0.2); ABSOLUTE EOSINOPHIL COUNT 0 /CUMM (0.0-0.7); ABSOLUTE GRANULOCYTE CT 5.8 /CUMM (1.4-6.5); ABSOLUTE LYMPH COUNT 1.2 /CUMM (1.2-3.4); ABSOLUTE MONOCYTE COUNT 0.6 /CUMM (0.10-0.60); BASOPHIL % 0.3 % (0.0-2.0); EOSINOPHIL % 0 % (0-5); GRANULOCYTE % 76.4 % (42.2-75.2); HEMATOCRIT 33.8 % (42-52); MEAN CORPUSCULAR HGB 33.5 PG (27.0-31.0); MEAN CORPUSCULAR HGB CONC 33.4 G/DL (33.0-37.0); MEAN CORPUSCULAR VOLUME 100.4 FL (80.0-94.0); MEAN PLATELET VOLUME 7.6 FL (7.4-10.4); PLATELET COUNT 244 /CUMM (130-400); RBC DISTRIBUTION WIDTH 15.3 % (11.5-14.5); RED BLOOD CELL CT 3.37 /CUMM (4.70-6.10); WHITE BLOOD CELL COUNT 7.6 /CUMM (4.8-10.8)
--- NOTE | 2017-02-05 09:55 | PN- Housestaff ---
Subjective Follow-up For: BRPR pacemaker dysfunction Subjective: Patient is seen and examined bedside. He does not endorse any acute overnight complaints including palpitation, chest pain, shortness of breath, fever, chills , cough, abdominal pain, bloody stool, or dysuria. No acute overnight event reported by nursing staff Review of Systems Constitutional: Reports: no symptoms. Objective Last 24 Hrs of Vital Signs/I&O Vital Signs Date Time Temp Pulse Resp B/P B/P Pulse O2 O2 Flow FiO2 Mean Ox Delivery Rate 02/05 1035 Room Air 02/05 0750 98.1 58 20 120/70 96 Room Air 02/05 0025 98.0 60 20 110/70 96 Room Air 02/04 1936 98.0 57 20 121/66 97 Room Air 02/04 1812 97.4 60 16 125/62 96 Room Air Intake & Output 02/05 1600 02/05 0800 / 0000 Intake Total 436 863 8447 Output Total 300 Balance 480 100 700 Intake, IV 1000 Intake, Oral 480 100 Output, Urine 300 Patient 72.575 kg Weight Physical Exam General Appearance: Alert, Oriented X3, Cooperative Other Physical Findings: Skin No Rashes, No Breakdown Skin Temp/Moisture Exam: Warm/Dry Sepsis Skin Exam (color): Normal for Ethnicity HEENT Atraumatic, PERRLA, EOMI, oral ulcers multiple mucous membranes dry Neck Supple, No JVD, No thryomegaly, +2 Carotid Pulse wo Bruit Lymphatic Axillary nl, Cervical nl Cardiovascular Regular Rate, Normal S1, Normal S2, No Murmurs Lungs Clear to Auscultation, Normal Air Movement Abdomen Normal Bowel Sounds, Soft, No Tenderness, No Hepatospenomegaly, No Masses, distention w/ no masses Neurological Normal Speech, Strength at 5/5 X4 Ext, Normal Tone, Sensation Intact, Cranial Nerves 3-12 NL, Reflexes 2+ Extremities No Clubbing, No Cyanosis, No Edema, Normal Pulses Vascular Normal Pulses, Pulses Symmetrical Current Medications: Current Medications Sig/Sari Start time Last Medication Dose Route Stop Time Status Admin Allopurinol 300 MG DAILY 02/05 1000 AC 02/05 PO 0858 Atorvastatin Calcium 5 MG 1700 02/04 1700 AC 02/04 PO 2108 Chlorthalidone 25 MG DAILY 02/05 1000 CAN PO Folic Acid 1 MG DAILY 02/05 1000 AC 02/05 PO 0858 Insulin Aspart 0 TIDAC 02/04 1700 AC 02/05 SC 1225 Levothyroxine Sodium 0.05 MG DAILY AC 02/05 0700 AC 02/05 PO 0519 Magnesium Oxide 400 MG ONE ONE 02/05 1530 DC PO 02/05 1531 Magnesium Oxide 400 MG .STK-MED ONE 02/05 0053 DC PO 02/05 0054 Magnesium Oxide 400 MG ONE ONE 02/04 2245 DC / PO 02/04 2246 0058 Pantoprazole Sodium 0 .STK-MED ONE 02/04 1819 DC IV Pantoprazole Sodium 40 MG DAILY 02/04 1611 AC 02/05 IV 0858 Patient Medication 1 ED .STK-MED ONE 02/05 1355 DC Teaching ED 02/05 1356 Potassium Chloride 40 MEQ ONCE ONE 02/05 1530 DC PO 02/05 1531 Potassium Chloride 40 MEQ .STK-MED ONE 02/05 0052 DC PO 02/05 0053 Potassium Chloride 10 MEQ Q1H 02/04 2245 DC 02/05 IV 02/04 2346 0300 Potassium Chloride 40 MEQ ONCE ONE 02/04 2245 DC 02/05 PO 02/04 2246 0103 Potassium Chloride 40 MEQ ONCE ONE 02/04 1800 DC / PO 02/04 1801 2107 Last 24 Hrs of Lab/Quan Results Last 24 Hrs of Labs/Mics: Laboratory Tests 02/05/17 0758: Anion Gap 8, Estimated GFR > 60, BUN/Creatinine Ratio 28.0 H, Magnesium 1.2 L, CBC w Diff NO MAN DIFF REQ, RBC 3.37 L, MCV 100.4 H, MCH 33.5 H, RDW 15.3 H, MPV 7.6, Gran % 76.4 H, Lymphocytes % 15.4 L, Monocytes % 7.9, Eosinophils % 0 , Basophils % 0.3, Absolute Granulocytes 5.8, Absolute Lymphocytes 1.2, Absolute Monocytes 0.6, Absolute Eosinophils 0, Absolute Basophils 0, PUBS MCHC 33.4 02/05/17 0220: Lactic Acid 0.8 02/04/172042: Anion Gap 11, Estimated GFR > 60, BUN/Creatinine Ratio 25.0, CBC w Diff NO MAN DIFF REQ, RBC 3.63 L, MCV 100.3 H, MCH 33.4 H, RDW 15.5 H, MPV 8.2, Gran % 79.1 H, Lymphocytes % 12.4 L, Monocytes % 8.4, Eosinophils % 0, Basophils % 0.1, Absolute Granulocytes 5.9, Absolute Lymphocytes 0.9 L, Absolute Monocytes 0.6, Absolute Eosinophils 0, Absolute Basophils 0, PUBS MCHC 33.3 Assessment/Plan Assessment: This is a 86-year-old very pleasant gentleman w/ a PMH of Afib ( not on AC sec to gi bleed) is being evaluated for bright red blood per rectum with history of constipation, hypokalemia, cardiac pacemaker abnormality. At the time of admission, pt had vitals temp 97.1, VA 74, RR 17, BP 128/61m 94% RA. Lab findigs indicate, WBC 7.6, Hb 11.8, MCV 97.9 ( elevated ), platelets 241 , Na 133, K 2.5 ( very low ). Sodium bicarbonate 32. Normal kidney function BUN 27, Sr cr 1.0, Normal liver function AST 20, ALT 26. 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 Failure to capture. Assessment and plan #BRBPR Episodes of transient rectal bleeding with patient not reporting any new episode since admission. About 80% of lower GI bleed is transient and self-limiting. Given the history of chronic constipation, this could possibly be hemorrhoidal bleeding. Other Possible etiology include diverticular bleeding. Of note, patient hemoglobin remained stable. Continue to trend CBC and monitor for any bleed. #Abnormal function of pacemaker Patient presented with EKG evidence of intermittent failure to capture. Interrogation of pacemaker was conducted cardiology today (appreciated). It is felt that most likely this is secondary to electrolyte imbalances as patient evidence of hypokalemia and hypomagnesemia. #Hypokalemia and hypomagnesemia Cool be secondary to poor nutrition. We'll continue aggressive replenishment to keep potassium above 4 and magnesium above 2. #Disposition Patient will most likely be discharged tomorrow. Problem List: 1. Hypokalemia 2. Pacemaker malfunction Pain Ratin Pain Location: none Pain Goal: Remain pain free Pain Plan: per pain pathway Tomorrow's Labs & Rationales: BEP-HYPOKALEMIA MAGNESIUM-low mag in the setting of pacemaker dysfunction
--- NOTE | 2017-02-05 13:11 | PN- Cardiology ---
Subjective Subjective: Feeling well. No chest pain. No shortness of breath. Fatigue improving. Potassium has improved with repletion. Magnesium level noted to be low. Pacemaker was interrogated this morning, and was found to be capturing normally. Objective Vital Signs and I&Os Vital Signs Date Time Temp Pulse Resp B/P B/P Pulse O2 O2 Flow FiO2 Mean Ox Delivery Rate 02/05 1035 Room Air 02/05 0750 98.1 58 20 120/70 96 Room Air 02/05 0025 98.0 60 20 110/70 96 Room Air 02/04 1936 98.0 57 20 121/66 97 Room Air 02/04 1812 97.4 60 16 125/62 96 Room Air 02/04 1352 98.3 60 16 122/65 09 Room Air Intake & Output 02/05 1600 02/05 0000 02/04 1600 02/05 0800 02/04 0000 Intake Total 100 1000 Output Total 300 850 Balance 100 700 -850 Intake, IV 1000 Intake, Oral 100 Output, Urine 300 850 Patient 160 lb 135 lb Weight Physical Exam: Gen: The patient is in no acute distress HEENT: Normal nose, ears, and oropharynx. Pupils equal bilaterally. Conjunctiva normal. Neck: Supple with no JVD, no masses, and no thyromegaly Lungs: Clear to auscultation with normal respiratory effort Heart: Irregular irregular, S1, S2, 2/6 systolic murmur. No peripheral edema, 2 + pulses in the lower extremities bilaterally Abdomen: Soft, nontender, no masses. No hepatomegaly. No splenomegaly Extremities: No clubbing or cyanosis. Normal muscle strength in the upper and lower extremities Skin: Normal skin turgor with no skin ulcers or lesions noted. Current Medications: Current Medications Sig/Sari Start time Last Medication Dose Route Stop Time Status Admin Allopurinol 300 MG DAILY 02/05 1000 AC 02/05 PO 0858 Atorvastatin Calcium 5 MG 1700 02/04 1700 AC 02/04 PO 2108 Chlorthalidone 25 MG DAILY 02/05 1000 CAN PO Folic Acid 1 MG DAILY 02/05 1000 AC 02/05 PO 0858 Insulin Aspart 0 TIDAC 02/04 1700 AC 02/05 SC 1225 Levothyroxine Sodium 0.05 MG DAILY AC 02/05 0700 AC 02/05 PO 0519 Magnesium Oxide 400 MG .STK-MED ONE 02/05 0053 DC PO 02/05 0054 Magnesium Oxide 400 MG ONE ONE 02/04 2245 DC 02/05 PO 02/04 2246 0058 Pantoprazole Sodium 0 .STK-MED ONE 02/04 1819 DC IV Pantoprazole Sodium 40 MG DAILY 02/04 1611 AC 02/05 IV 0858 Potassium Chloride 40 MEQ .STK-MED ONE 02/05 0052 DC PO 02/05 0053 Potassium Chloride 10 MEQ Q1H 02/04 2245 DC 02/05 IV 02/04 2346 0300 Potassium Chloride 40 MEQ ONCE ONE 02/04 2245 DC / PO 02/04 2246 0103 Potassium Chloride 40 MEQ ONCE ONE 02/04 1800 DC / PO 02/04 1801 2107 Potassium Chloride 0 .STK-MED ONE 02/04 1606 DC PO Potassium Chloride 40 MEQ ONCE ONE 02/04 1500 DC / PO 02/04 1501 1546 Sodium Chloride 500 ML BOLUS ONE 02/04 1300 DC 02/04 IV 02/04 1359 1505 Results Last 48 Hrs of Labs/Mics: Laboratory Tests 02/05/17 0758: Anion Gap 8, Estimated GFR > 60, BUN/Creatinine Ratio 28.0 H, CBC w Diff NO MAN DIFF REQ, RBC 3.37 L, MCV 100.4 H, MCH 33.5 H, RDW 15.3 H, MPV 7.6, Gran % 76.4 H, Lymphocytes % 15.4 L, Monocytes % 7.9, Eosinophils % 0, Basophils % 0.3, Absolute Granulocytes 5.8, Absolute Lymphocytes 1.2, Absolute Monocytes 0.6 , Absolute Eosinophils 0, Absolute Basophils 0, PUBS MCHC 33.4 02/05/17 0220: Lactic Acid 0.8 02/04/172042: Anion Gap 11, Estimated GFR > 60, BUN/Creatinine Ratio 25.0, CBC w Diff NO MAN DIFF REQ, RBC 3.63 L, MCV 100.3 H, MCH 33.4 H, RDW 15.5 H, MPV 8.2, Gran % 79.1 H, Lymphocytes % 12.4 L, Monocytes % 8.4, Eosinophils % 0, Basophils % 0.1, Absolute Granulocytes 5.9, Absolute Lymphocytes 0.9 L, Absolute Monocytes 0.6, Absolute Eosinophils 0, Absolute Basophils 0, PUBS MCHC 33.3 02/04/17 1355: Lactic Acid Cancelled 02/04/17 1335: Urine Color YEL, Urine Clarity CLEAR, Urine pH 7.0, Ur Specific Pr[place] 1.010, Urine Protein NEG, Urine Ketones NEG, Urine Nitrite NEG, Urine Bilirubin NEG, Urine Urobilinogen 0.2, Ur Leukocyte Esterase NEG, Ur Microscopic SEDIMENT EXAMINED, Urine RBC 1-3, Urine WBC RARE, Ur Epithelial Cells RARE, Urine Hemoglobin TRACE-LYSED H, Urine Glucose NEG 02/04/17 1154: Anion Gap 14, Estimated GFR > 60, BUN/Creatinine Ratio 27.0 H, Glucose 187 H, Lactic Acid 1.6, Calcium 9.4, Magnesium 1.1 L, Total Bilirubin 0.7, AST 20, ALT 26, Alkaline Phosphatase 77, Troponin I 0.06, Total Protein 6.7, Albumin 4.0, Globulin 2.7, Albumin/Globulin Ratio 1.5, PT 10.5, INR 1.00, APTT 30, CBC w Diff NO MAN DIFF REQ, RBC 3.55 L, MCV 97.9 H, MCH 33.3 H, RDW 15.1 H, MPV 7.7, Gran % 83.6 H, Lymphocytes % 9.6 L, Monocytes % 6.7, Eosinophils % 0, Basophils % 0.1, Absolute Granulocytes 6.4, Absolute Lymphocytes 0.7 L, Absolute Monocytes 0.5, Absolute Eosinophils 0, Absolute Basophils 0, PUBS MCHC 34.0 Assessment/Plan Assessment/Plan Assessment: 1. Hypokalemia and hypomagnesemia, likely due to chlorthalidone 2. Permanent pacemaker with intermittent non-capture, likely exacerbated by hypokalemia and hypomagnesemia 3. Paroxysmal atrial fibrillation, not anticoagulated because of GI bleed Plan: * Pacemaker was interrogated and is not found to be capturing normally. The prior non-capture was likely secondary to electrolyte abnormalities. * Supplement potassium to greater than 4.0 * Give magnesium sulfate 2 g IV, and then recheck magnesium level * Echocardiogram Continue telemetry? Yes
--- NOTE | 2017-02-05 13:31 | PN- Att Addend ---
Attending Addendum Attending Brief Note Patient seen and examined, he denies any complaints. He claims that his last bowel movement was yesterday and he did not see any blood. His vital signs are stable. According to cardiology, his pacer was not found to be capturing normally likely secondary to electrolytes abnormalities. Vital Signs Date Time Temp Pulse Resp B/P B/P Pulse O2 O2 Flow FiO2 Mean Ox Delivery Rate 02/05 1035 Room Air 02/05 0750 98.1 58 20 120/70 96 Room Air 02/05 0025 98.0 60 20 110/70 96 Room Air 02/04 1936 98.0 57 20 121/66 97 Room Air 02/04 1812 97.4 60 16 125/62 96 Room Air 02/04 1352 98.3 60 16 122/65 09 Room Air on exam; awake, nad. cv: s1,s2, rrr. resp; clear abd; soft, nt, bs+ ext; no edema. Laboratory Tests 02/05 02/05 0758 0220 Chemistry Sodium (137 - 145 mmol/L) 134 L Potassium (3.5 - 5.1 mmol/L) 3.7 Chloride (98 - 107 mmol/L) 94 L Carbon Dioxide (22 - 30 mmol/L) 33 H Anion Gap (5 - 16) 8 BUN (9 - 20 mg/dL) 28 H Creatinine (0.7 - 1.2 mg/dL) 1.0 Estimated GFR (>60 ml/min) > 60 BUN/Creatinine Ratio (7 - 25 %) 28.0 H Lactic Acid (0.7 - 2.1 mmol/L) 0.8 Hematology CBC w Diff NO MAN DIFF REQ WBC (4.8 - 10.8 /CUMM) 7.6 RBC (4.70 - 6.10 /CUMM) 3.37 L Hgb (14.0 - 18.0 G/DL) 11.3 L Hct (42 - 52 %) 33.8 L MCV (80.0 - 94.0 FL) 100.4 H MCH (27.0 - 31.0 PG) 33.5 H RDW (11.5 - 14.5 %) 15.3 H Plt Count (130 - 400 /CUMM) 244 MPV (7.4 - 10.4 FL) 7.6 Gran % (42.2 - 75.2 %) 76.4 H Lymphocytes % (20.5 - 51.1 %) 15.4 L Monocytes % (1.7 - 9.3 %) 7.9 Eosinophils % (0 - 5 %) 0 Basophils % (0.0 - 2.0 %) 0.3 Absolute Granulocytes (1.4 - 6.5 /CUMM) 5.8 Absolute Lymphocytes (1.2 - 3.4 /CUMM) 1.2 Absolute Monocytes (0.10 - 0.60 /CUMM) 0.6 Absolute Eosinophils (0.0 - 0.7 /CUMM) 0 Absolute Basophils (0.0 - 0.2 /CUMM) 0 PUBS MCHC (33.0 - 37.0 G/DL) 33.4 05/08 02/04 2043 1355 Chemistry Sodium (137 - 145 mmol/L) 130 L Potassium (3.5 - 5.1 mmol/L) 2.9 *L Chloride (98 - 107 mmol/L) 87 L Carbon Dioxide (22 - 30 mmol/L) 33 H Anion Gap (5 - 16) 11 BUN (9 - 20 mg/dL) 25 H Creatinine (0.7 - 1.2 mg/dL) 1.0 Estimated GFR (>60 ml/min) > 60 BUN/Creatinine Ratio (7 - 25 %) 25.0 Lactic Acid Cancelled Hematology CBC w Diff NO MAN DIFF REQ WBC (4.8 - 10.8 /CUMM) 7.5 RBC (4.70 - 6.10 /CUMM) 3.63 L Hgb (14.0 - 18.0 G/DL) 12.1 L Hct (42 - 52 %) 36.5 L MCV (80.0 - 94.0 FL) 100.3 H MCH (27.0 - 31.0 PG) 33.4 H RDW (11.5 - 14.5 %) 15.5 H Plt Count (130 - 400 /CUMM) 264 MPV (7.4 - 10.4 FL) 8.2 Gran % (42.2 - 75.2 %) 79.1 H Lymphocytes % (20.5 - 51.1 %) 12.4 L Monocytes % (1.7 - 9.3 %) 8.4 Eosinophils % (0 - 5 %) 0 Basophils % (0.0 - 2.0 %) 0.1 Absolute Granulocytes (1.4 - 6.5 /CUMM) 5.9 Absolute Lymphocytes (1.2 - 3.4 /CUMM) 0.9 L Absolute Monocytes (0.10 - 0.60 /CUMM) 0.6 Absolute Eosinophils (0.0 - 0.7 /CUMM) 0 Absolute Basophils (0.0 - 0.2 /CUMM) 0 PUBS MCHC (33.0 - 37.0 G/DL) 33.3 /08 1335 Urines Urine Color (YEL,AMB,STR) YEL Urine Clarity (CLEAR) CLEAR Urine pH (5.0 - 8.0) 7.0 Ur Specific [place] (1.001 - 1.035) 1.010 Urine Protein (NEG,<30 MG/DL) NEG Urine Ketones (NEG) NEG Urine Nitrite (NEG) NEG Urine Bilirubin (NEG) NEG Urine Urobilinogen (0.1 - 1.0 EU/dl) 0.2 Ur Leukocyte Esterase (NEG) NEG Ur Microscopic SEDIMENT EXAMINED Urine RBC (0 - 5 /HPF) 1-3 Urine WBC (0 - 2 /HPF) RARE Ur Epithelial Cells (NONE,FEW) RARE Urine Hemoglobin (NEG) TRACE-LYSED H Urine Glucose (N MG/DL) NEG A/P; 86 y/o M with pmh sig for Chronic Afib ( tachy-vanessa ) not on any AC due to GI bleed(diverticular bleed), s/p single lead pacemaker implantation(pt has chronic afib), valvular heart disease, uncharecterized pancreatic lesion, admitted with patient complaining of bright red blood per rectum although stool guaiac negative, pacer interrogated and found to be not capturing properly likely secondary to electrolytes abnormalities. Replete his potassium and magnesium aggressively as also recommended by cardiology. H&H is relatively stable. Can switch his PPI to oral (home medication) Please resume other home medications. Patient's family wants him to go to assisted living facility. Please order PT eval.
--- NOTE | 2017-02-05 14:38 | Cons- Thoracic Surgery ---
General Information and HPI Consulting Request Date of Consult: 02/05/17 Requested By: INEZ SARAH MD Reason for Consult: Evaluate pacemaker function. Evidence of failure to capture in the emergency room. Source of Information: old records, PCP Exam Limitations: confusion History of Present Illness: The patient is known to me. In June 2016 I placed a single lead MRI compatible pacemaker for symptomatic bradycardia related to his chronic atrial fibrillation and conduction disease. I saw him in the office 2 weeks ago for pacemaker interrogation and reprogramming and his device was functioning well. He presented to the emergency room yesterday with complaints of constipation possible rectal bleeding and general decline in his well-being. An electrocardiogram that was done in the emergency room showed evidence of failure of the pacemaker lead to capture. Patient has been admitted and has been clinically stable. Cardiac surgical evaluation is asked for evaluation of the patient permanent pacemaker. Allergies/Medications Allergies: Coded Allergies: NO KNOWN ALLERGIES (04/25/16) Home Med List: Allopurinol 300 MG TABLET 1 TAB PO DAILY GOUT (Reported) Chlorthalidone 25 MG TABLET 1 TAB PO DAILY HEART (Reported) Clonazepam 0.5 MG TABLET 0.5 TAB PO BID ANXIETY (Reported) Fluticasone Propionate 50 MCG/ACTUATION SPRAY.SUSP 2 SPRAY NASB DAILY ALLERGIES (Reported) Folic Acid 1 MG TABLET 1 TAB PO DAILY VITAMIN SUPPORT (Reported) Levothyroxine Sodium (Levoxyl) 50 MCG TABLET 1 TAB PO DAILY THYROID (Reported ) Metformin HCl (Metformin HCl ER) 500 MG TAB.ER.24 1 TAB PO DAILY DIABETES ( Reported) Omeprazole 20 MG CAPSULE.DR 1 CAP PO DAILY GI (Reported) Pioglitazone HCl (Actos) 30 MG TABLET 1 TAB PO DAILY DIABETES (Reported) Simvastatin (Simvastatin*) 10 MG TABLET 1 TAB PO QPM CHOLESTEROL (Reported) Current Medications: Current Medications Sig/Sari Start time Last Medication Dose Route Stop Time Status Admin Allopurinol 300 MG DAILY 02/05 1000 AC 02/05 PO 0858 Atorvastatin Calcium 5 MG 1700 02/04 1700 AC 02/04 PO 2108 Chlorthalidone 25 MG DAILY 02/05 1000 CAN PO Folic Acid 1 MG DAILY 02/05 1000 AC 02/05 PO 0858 Insulin Aspart 0 TIDAC 02/04 1700 AC 05 SC 1225 Levothyroxine Sodium 0.05 MG DAILY AC 02/05 0700 AC 02/05 PO 0519 Magnesium Oxide 400 MG .STK-MED ONE 02/05 0053 DC PO 02/05 0054 Magnesium Oxide 400 MG ONE ONE 02/04 2245 DC / PO 02/04 2246 0058 Pantoprazole Sodium 0 .STK-MED ONE 02/04 1819 DC IV Pantoprazole Sodium 40 MG DAILY 02/04 1611 AC 02/05 IV 0858 Patient Medication 1 ED .STK-MED ONE 02/05 1355 DC Teaching ED 02/05 1356 Potassium Chloride 40 MEQ .STK-MED ONE 02/05 0052 DC PO 02/05 0053 Potassium Chloride 10 MEQ Q1H 02/04 2245 DC 02/05 IV 02/04 2346 0300 Potassium Chloride 40 MEQ ONCE ONE 02/04 2245 DC 02/05 PO 02/04 2246 0103 Potassium Chloride 40 MEQ ONCE ONE 02/04 1800 DC / PO 02/04 1801 2107 Potassium Chloride 0 .STK-MED ONE 02/04 1606 DC PO Potassium Chloride 40 MEQ ONCE ONE 02/04 1500 DC 02/04 PO 02/04 1501 1546 Past History Medical History Neurological: dizziness, TIA, vertigo, PERIPHERAL NERVE DISEASE EENT: cataracts Cardiovascular: AFIB, hypertension, hyperlipidemia, mitral regurgitation, TR HEART MURMUR CARDIOVERSION Respiratory: pneumonia Gastrointestinal: hiatal hernia, ESOPHAGITIS diverticulosis coli hx colon polyps Hepatic: NONE Renal: RENAL FAILURE SYNDROME resolved post ACEI/Bactrim Musculoskeletal: gout Psychiatric: anxiety, depression, PANIC ATTACKS Endocrine: diabetes, hypothyroidism Blood Disorders: anemia, hx mixed Fe/B12 deficiency macrocytosis; ? 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 Home Who Do You Live With? grandson & VNS Services at Home: None Primary Language: Slovak Smoking Status: Unknown If Ever Smoked ETOH Use: denies use Illicit Drug Use: denies illicit drug use Living Will? no Power of Counselor Dormitory/HCP? no Functional Ability ADLs Independent: dressing, eating, toileting, bathing. Ambulation: independent IADLs Independent: food prep, telephone. Unknown: shopping, housework, finances, transportation, medication admin. Review of Systems Review of Systems: Notable only for the patient's GI complaints of constipation. He has had no syncope or presyncope. There is been no chest pain and no palpitations. The Respess 12 point review of systems is unremarkable for my evaluation. Exam & Diagnostic Data Vital Signs and I&O Vital Signs Date Time Temp Pulse Resp B/P B/P Pulse O2 O2 Flow FiO2 Mean Ox Delivery Rate 02/05 1035 Room Air 02/05 0750 98.1 58 20 120/70 96 Room Air 02/05 0025 98.0 60 20 110/70 96 Room Air 02/04 1936 98.0 57 20 121/66 97 Room Air 02/04 1812 97.4 60 16 125/62 96 Room Air Intake & Output 02/05 1600 02/05 0802/05 0000 02/04 1600 02/05 0800 02/04 0000 Intake Total 302 376 1680 Output Total 300 850 Balance 480 100 700 -850 Intake, IV 1000 Intake, Oral 480 100 Output, Urine 300 850 Patient 160 lb 135 lb Weight Physical Exam: On physical examination he is sitting comfortably in a chair with no complaints. His skin is warm and well perfused no suspicious lesions noted. The sclerae are anicteric and his mucous membranes are moist. There is no cervical or supraclavicular lymphadenopathy. His breath sounds are clear bilaterally with no wheezes or rhonchi noted. The cardiac exam shows regular rhythm and rate with no murmurs or sounds. The abdomen is soft and nontender with no masses. The periphery shows no cyanosis clubbing or edema. His neurologic exam is grossly normal motor and sensory function. Last 24 Hours of Labs: Laboratory Tests 02/05 02/05 0758 0220 Chemistry Sodium (137 - 145 mmol/L) 134 L Potassium (3.5 - 5.1 mmol/L) 3.7 Chloride (98 - 107 mmol/L) 94 L Carbon Dioxide (22 - 30 mmol/L) 33 H Anion Gap (5 - 16) 8 BUN (9 - 20 mg/dL) 28 H Creatinine (0.7 - 1.2 mg/dL) 1.0 Estimated GFR (>60 ml/min) > 60 BUN/Creatinine Ratio (7 - 25 %) 28.0 H Lactic Acid (0.7 - 2.1 mmol/L) 0.8 Hematology CBC w Diff NO MAN DIFF REQ WBC (4.8 - 10.8 /CUMM) 7.6 RBC (4.70 - 6.10 /CUMM) 3.37 L Hgb (14.0 - 18.0 G/DL) 11.3 L Hct (42 - 52 %) 33.8 L MCV (80.0 - 94.0 FL) 100.4 H MCH (27.0 - 31.0 PG) 33.5 H RDW (11.5 - 14.5 %) 15.3 H Plt Count (130 - 400 /CUMM) 244 MPV (7.4 - 10.4 FL) 7.6 Gran % (42.2 - 75.2 %) 76.4 H Lymphocytes % (20.5 - 51.1 %) 15.4 L Monocytes % (1.7 - 9.3 %) 7.9 Eosinophils % (0 - 5 %) 0 Basophils % (0.0 - 2.0 %) 0.3 Absolute Granulocytes (1.4 - 6.5 /CUMM) 5.8 Absolute Lymphocytes (1.2 - 3.4 /CUMM) 1.2 Absolute Monocytes (0.10 - 0.60 /CUMM) 0.6 Absolute Eosinophils (0.0 - 0.7 /CUMM) 0 Absolute Basophils (0.0 - 0.2 /CUMM) 0 PUBS MCHC (33.0 - 37.0 G/DL) 33.4 05/2042 Chemistry Sodium (137 - 145 mmol/L) 130 L Potassium (3.5 - 5.1 mmol/L) 2.9 *L Chloride (98 - 107 mmol/L) 87 L Carbon Dioxide (22 - 30 mmol/L) 33 H Anion Gap (5 - 16) 11 BUN (9 - 20 mg/dL) 25 H Creatinine (0.7 - 1.2 mg/dL) 1.0 Estimated GFR (>60 ml/min) > 60 BUN/Creatinine Ratio (7 - 25 %) 25.0 Hematology CBC w Diff NO MAN DIFF REQ WBC (4.8 - 10.8 /CUMM) 7.5 RBC (4.70 - 6.10 /CUMM) 3.63 L Hgb (14.0 - 18.0 G/DL) 12.1 L Hct (42 - 52 %) 36.5 L MCV (80.0 - 94.0 FL) 100.3 H MCH (27.0 - 31.0 PG) 33.4 H RDW (11.5 - 14.5 %) 15.5 H Plt Count (130 - 400 /CUMM) 264 MPV (7.4 - 10.4 FL) 8.2 Gran % (42.2 - 75.2 %) 79.1 H Lymphocytes % (20.5 - 51.1 %) 12.4 L Monocytes % (1.7 - 9.3 %) 8.4 Eosinophils % (0 - 5 %) 0 Basophils % (0.0 - 2.0 %) 0.1 Absolute Granulocytes (1.4 - 6.5 /CUMM) 5.9 Absolute Lymphocytes (1.2 - 3.4 /CUMM) 0.9 L Absolute Monocytes (0.10 - 0.60 /CUMM) 0.6 Absolute Eosinophils (0.0 - 0.7 /CUMM) 0 Absolute Basophils (0.0 - 0.2 /CUMM) 0 PUBS MCHC (33.0 - 37.0 G/DL) 33.3 Other Results: Pacemaker interrogation today shows an estimated longevity of 9.5 years on his generator. The ventricular lead shows an impedance of 665 ohms. The capture threshold was at 1 V and this compares with his most recent capture threshold of 1.125 V. R waves were measured 6.1 mV. He spends over 90% of his time ventricularly paced. Of note is that there is a considerable increase in the number of PVCs in the range of greater than 300/h which is different from his in office evaluation.'s is associated with an admission potassium of 2.5 and magnesium of 1.1 both of which are below normal range. Assessment/Plan Assessment/Plan An 86-year-old patient with a permanent pacemaker that is been in place for over 6 months. On admission the 12-lead EKG suggested failure to capture. It is possible that there was some degree of HER problem given the marked electrolyte abnormalities. His potassium is been corrected and they're in the process of correcting the magnesium with intravenous magnesium replacement. Given the frequent PVCs this could lead to somewhat of a pause post PVC as his pacemaker will re-time itself. However the pacemaker function appears normal with no change and there is no indication for any further evaluation. Copies To: ELVIS NIETO,Joanne HIGUERA Consult Acknowledgment - Thank you for your consult request.
[2017-02-05 17:46] VITALS: BP 122/68
--- NOTE | 2017-02-05 21:49 | Cons- Gastroenterology ---
General Information and HPI Consulting Request Date of Consult: 02/05/17 Requested By: INEZ SARAH MD Reason for Consult: Hematochezia Source of Information: patient, old records Exam Limitations: poor historian History of Present Illness: The patient is a poor, vague historian. The patient is seen for bright blood per rectum. He believes he has had "pancreatic cancer which was diagnosed here." He was sent to [facility] for evaluation but "nothing was done." He has been constipated for the past 2 weeks despite stool softeners. He passed bright red blood per rectum when straining/ forcing at evacuation, and went to the emergency room. He was admitted because of pacemaker dysfunction. He has had some dull/mild left upper quadrant pain as well. Today he had a bowel movement but he does not know if it was accompanied by blood. According to the nurse, his stool has been Hemoccult negative. The patient had a lower GI bleed in March 2016. He presented with constipation and bright red blood per rectum. CT antrum that was positive in the transverse colon, and colonoscopy was performed but there was no active bleeding. Polyps were left intact. The patient has chronic anemia attributed to decreased iron and B12. He also has gastroesophageal reflux disease, diverticulosis, and polyps. In 2009 he had a negative EGD, and a colonoscopy demonstrating internal hemorrhoids, no polyps, and diverticulosis throughout the colon. In 2007 colonoscopy demonstrated a tubular adenoma. He has been noted to have pancreatic cysts on CT scan, and may have gone to [facility] for endoscopic ultrasound ; details unavailable. Allergies/Medications Allergies: Coded Allergies: NO KNOWN ALLERGIES (04/25/16) Home Med List: Allopurinol 300 MG TABLET 1 TAB PO DAILY GOUT (Reported) Clonazepam 0.5 MG TABLET 0.5 TAB PO BID ANXIETY (Reported) Fluticasone Propionate 50 MCG/ACTUATION SPRAY.SUSP 2 SPRAY NASB DAILY ALLERGIES (Reported) Folic Acid 1 MG TABLET 1 TAB PO DAILY VITAMIN SUPPORT (Reported) Levothyroxine Sodium (Levoxyl) 50 MCG TABLET 1 TAB PO DAILY THYROID (Reported ) Metformin HCl (Metformin HCl ER) 500 MG TAB.ER.24 1 TAB PO DAILY DIABETES ( Reported) Omeprazole 20 MG CAPSULE.DR 1 CAP PO DAILY GI (Reported) Pioglitazone HCl (Actos) 30 MG TABLET 1 TAB PO DAILY DIABETES (Reported) Polyethylene Glycol 3350 (Miralax) 17 GRAM POWD.PACK 17 GM PO DAILY PRN CONSTIPATION Simvastatin (Simvastatin*) 10 MG TABLET 1 TAB PO QPM CHOLESTEROL (Reported) Current Medications: Current Medications Sig/Sari Start time Last Medication Dose Route Stop Time Status Admin Allopurinol 300 MG DAILY 02/05 1000 AC 05 PO 0858 Atorvastatin Calcium 5 MG 1700 02/04 1700 AC 05 PO 1732 Folic Acid 1 MG DAILY 02/05 1000 AC 02/05 PO 0858 Insulin Aspart 0 TIDAC 02/04 1700 AC 02/05 SC 1731 Levothyroxine Sodium 0.05 MG DAILY AC 02/05 0700 AC 02/05 PO 0519 Magnesium Oxide 400 MG ONE ONE 02/05 1530 DC 02/05 PO 02/05 1531 1732 Magnesium Oxide 400 MG .STK-MED ONE 02/05 0053 DC PO 02/05 0054 Magnesium Oxide 400 MG ONE ONE 02/04 2245 DC 02/05 PO 02/04 2246 0058 Magnesium Sulfate 1 GM Q2H 02/05 1715 DC 02/05 Dextrose/Water 100 ML IV 02/05 2114 2026 Pantoprazole Sodium 40 MG DAILY 02/04 1611 AC 02/05 IV 0858 Patient Medication 1 ED .STK-MED ONE 02/05 1355 DC Teaching ED 02/05 1356 Potassium Chloride 40 MEQ ONCE ONE 02/05 1530 DC / PO 02/05 1531 1732 Potassium Chloride 40 MEQ .STK-MED ONE 02/05 0052 DC PO 02/05 0053 Potassium Chloride 10 MEQ Q1H 02/04 2245 DC 02/05 IV 02/04 2346 0300 Potassium Chloride 40 MEQ ONCE ONE 02/04 2245 DC 02/05 PO 02/04 2246 0103 Past History Travel History Traveled to [place] past 21 day No Medical History Neurological: dizziness, TIA, vertigo, PERIPHERAL NERVE DISEASE EENT: cataracts Cardiovascular: AFIB, hypertension, hyperlipidemia, mitral regurgitation, TR HEART MURMUR CARDIOVERSION Respiratory: pneumonia Gastrointestinal: hiatal hernia, ESOPHAGITIS diverticulosis coli hx colon polyps Hepatic: NONE Renal: RENAL FAILURE SYNDROME resolved post ACEI/Bactrim Musculoskeletal: gout Psychiatric: anxiety, depression, PANIC ATTACKS Endocrine: diabetes, hypothyroidism Blood Disorders: anemia, hx mixed Fe/B12 deficiency macrocytosis; ? 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 Home Who Do You Live With? grandson & VNS Services at Home: None Primary Language: Luxembourger Smoking Status: Unknown If Ever Smoked ETOH Use: denies use Illicit Drug Use: denies illicit drug use Living Will? no Power of Assistant Superintendent For Curriculum/HCP? no Functional Ability ADLs Independent: dressing, eating, toileting, bathing. Ambulation: independent IADLs Independent: food prep, telephone. Unknown: shopping, housework, finances, transportation, medication admin. Review of Systems Review of Systems: Unreliable given the patient's inability to focus, and relay proper history at interview. Review of Systems Constitutional: Reports: malaise, weakness. EENTM: Denies: icterus, epistaxis. Cardiovascular: Denies: chest pain, syncope. Respiratory: Reports: short of breath. Denies: hemoptysis. GI: Reports: see HPI. Genitourinary: Denies: dysuria, hematuria. Musculoskeletal: Denies: muscle stiffness, neck pain. Skin: Denies: jaundice, lesions. Neurological/Psychological: Reports: depressed, emotional problems. Hematologic/Endocrine: Reports: bleeding. Denies: bruising. Exam & Diagnostic Data Vital Signs and I&O Vital Signs Date Time Temp Pulse Resp B/P B/P Pulse O2 O2 Flow FiO2 Mean Ox Delivery Rate 02/05 1746 99.0 70 18 122/68 92 Room Air 02/05 1035 Room Air 02/05 0750 98.1 58 20 120/70 96 Room Air 02/05 0025 98.0 60 20 110/70 96 Room Air Intake & Output 02/05 1600 02/05 0400 02/04 1600 02/04 0400 02/03 1600 02/03 0400 Intake Total 580 1000 Output Total 300 850 Balance 580 700 -850 Intake, IV 1000 Intake, Oral 580 Output, Urine 300 850 Patient 160 lb 135 lb Weight Physical Exam: The patient is examined in a chair. Alert and oriented. Skin without lesion. No adenopathy. No scleral icterus or oropharyngeal lesion. No thyromegaly or neck mass. Heart regular rhythm. Lungs clear. Abdomen with mild upper distention, normal bowel sounds, and no tenderness or palpable mass/ organomegaly. Extremities with 1+ edema. Results Pertinent Lab Results: Laboratory Tests 02/05 02/05 0758 0220 Chemistry Sodium (137 - 145 mmol/L) 134 L Potassium (3.5 - 5.1 mmol/L) 3.7 Chloride (98 - 107 mmol/L) 94 L Carbon Dioxide (22 - 30 mmol/L) 33 H Anion Gap (5 - 16) 8 BUN (9 - 20 mg/dL) 28 H Creatinine (0.7 - 1.2 mg/dL) 1.0 Estimated GFR (>60 ml/min) > 60 BUN/Creatinine Ratio (7 - 25 %) 28.0 H Lactic Acid (0.7 - 2.1 mmol/L) 0.8 Magnesium (1.6 - 2.3 mg/dL) 1.2 L Hematology CBC w Diff NO MAN DIFF REQ WBC (4.8 - 10.8 /CUMM) 7.6 RBC (4.70 - 6.10 /CUMM) 3.37 L Hgb (14.0 - 18.0 G/DL) 11.3 L Hct (42 - 52 %) 33.8 L MCV (80.0 - 94.0 FL) 100.4 H MCH (27.0 - 31.0 PG) 33.5 H RDW (11.5 - 14.5 %) 15.3 H Plt Count (130 - 400 /CUMM) 244 MPV (7.4 - 10.4 FL) 7.6 Gran % (42.2 - 75.2 %) 76.4 H Lymphocytes % (20.5 - 51.1 %) 15.4 L Monocytes % (1.7 - 9.3 %) 7.9 Eosinophils % (0 - 5 %) 0 Basophils % (0.0 - 2.0 %) 0.3 Absolute Granulocytes (1.4 - 6.5 /CUMM) 5.8 Absolute Lymphocytes (1.2 - 3.4 /CUMM) 1.2 Absolute Monocytes (0.10 - 0.60 /CUMM) 0.6 Absolute Eosinophils (0.0 - 0.7 /CUMM) 0 Absolute Basophils (0.0 - 0.2 /CUMM) 0 PUBS MCHC (33.0 - 37.0 G/DL) 33.4 05/08 05/08 2043 1355 Chemistry Sodium (137 - 145 mmol/L) 130 L Potassium (3.5 - 5.1 mmol/L) 2.9 *L Chloride (98 - 107 mmol/L) 87 L Carbon Dioxide (22 - 30 mmol/L) 33 H Anion Gap (5 - 16) 11 BUN (9 - 20 mg/dL) 25 H Creatinine (0.7 - 1.2 mg/dL) 1.0 Estimated GFR (>60 ml/min) > 60 BUN/Creatinine Ratio (7 - 25 %) 25.0 Lactic Acid Cancelled Hematology CBC w Diff NO MAN DIFF REQ WBC (4.8 - 10.8 /CUMM) 7.5 RBC (4.70 - 6.10 /CUMM) 3.63 L Hgb (14.0 - 18.0 G/DL) 12.1 L Hct (42 - 52 %) 36.5 L MCV (80.0 - 94.0 FL) 100.3 H MCH (27.0 - 31.0 PG) 33.4 H RDW (11.5 - 14.5 %) 15.5 H Plt Count (130 - 400 /CUMM) 264 MPV (7.4 - 10.4 FL) 8.2 Gran % (42.2 - 75.2 %) 79.1 H Lymphocytes % (20.5 - 51.1 %) 12.4 L Monocytes % (1.7 - 9.3 %) 8.4 Eosinophils % (0 - 5 %) 0 Basophils % (0.0 - 2.0 %) 0.1 Absolute Granulocytes (1.4 - 6.5 /CUMM) 5.9 Absolute Lymphocytes (1.2 - 3.4 /CUMM) 0.9 L Absolute Monocytes (0.10 - 0.60 /CUMM) 0.6 Absolute Eosinophils (0.0 - 0.7 /CUMM) 0 Absolute Basophils (0.0 - 0.2 /CUMM) 0 PUBS MCHC (33.0 - 37.0 G/DL) 33.3 05/08 05/08 1335 1154 Chemistry Sodium (137 - 145 mmol/L) 133 L Potassium (3.5 - 5.1 mmol/L) 2.5 *L Chloride (98 - 107 mmol/L) 87 L Carbon Dioxide (22 - 30 mmol/L) 32 H Anion Gap (5 - 16) 14 BUN (9 - 20 mg/dL) 27 H Creatinine (0.7 - 1.2 mg/dL) 1.0 Estimated GFR (>60 ml/min) > 60 BUN/Creatinine Ratio (7 - 25 %) 27.0 H Glucose (65 - 99 mg/dL) 187 H Lactic Acid (0.7 - 2.1 mmol/L) 1.6 Calcium (8.4 - 10.2 mg/dL) 9.4 Magnesium (1.6 - 2.3 mg/dL) 1.1 L Total Bilirubin (0.2 - 1.3 mg/dL) 0.7 AST (17 - 59 U/L) 20 ALT (21 - 72 U/L) 26 Alkaline Phosphatase (< 127 U/L) 77 Troponin I (<0.11 ng/ml) 0.06 Total Protein (6.3 - 8.2 g/dL) 6.7 Albumin (3.5 - 5.0 g/dL) 4.0 Globulin (1.9 - 4.2 gm/dL) 2.7 Albumin/Globulin Ratio (1.1 - 2.2 %) 1.5 Coagulation PT (9.4 - 12.5 SEC) 10.5 INR (0.90 - 1.17) 1.00 APTT (25 - 37 SEC) 30 Hematology CBC w Diff NO MAN DIFF REQ WBC (4.8 - 10.8 /CUMM) 7.6 RBC (4.70 - 6.10 /CUMM) 3.55 L Hgb (14.0 - 18.0 G/DL) 11.8 L Hct (42 - 52 %) 34.7 L MCV (80.0 - 94.0 FL) 97.9 H MCH (27.0 - 31.0 PG) 33.3 H RDW (11.5 - 14.5 %) 15.1 H Plt Count (130 - 400 /CUMM) 241 MPV (7.4 - 10.4 FL) 7.7 Gran % (42.2 - 75.2 %) 83.6 H Lymphocytes % (20.5 - 51.1 %) 9.6 L Monocytes % (1.7 - 9.3 %) 6.7 Eosinophils % (0 - 5 %) 0 Basophils % (0.0 - 2.0 %) 0.1 Absolute Granulocytes (1.4 - 6.5 /CUMM) 6.4 Absolute Lymphocytes (1.2 - 3.4 /CUMM) 0.7 L Absolute Monocytes (0.10 - 0.60 /CUMM) 0.5 Absolute Eosinophils (0.0 - 0.7 /CUMM) 0 Absolute Basophils (0.0 - 0.2 /CUMM) 0 PUBS MCHC (33.0 - 37.0 G/DL) 34.0 Urines Urine Color (YEL,AMB,STR) YEL Urine Clarity (CLEAR) CLEAR Urine pH (5.0 - 8.0) 7.0 Ur Specific [place] (1.001 - 1.035) 1.010 Urine Protein (NEG,<30 MG/DL) NEG Urine Ketones (NEG) NEG Urine Nitrite (NEG) NEG Urine Bilirubin (NEG) NEG Urine Urobilinogen (0.1 - 1.0 EU/dl) 0.2 Ur Leukocyte Esterase (NEG) NEG Ur Microscopic SEDIMENT EXAMINED Urine RBC (0 - 5 /HPF) 1-3 Urine WBC (0 - 2 /HPF) RARE Ur Epithelial Cells (NONE,FEW) RARE Urine Hemoglobin (NEG) TRACE-LYSED H Urine Glucose (N MG/DL) NEG Assessment/Plan Assessment/Recommendations: Single episode of hematochezia, in the setting of constipation, currently with report of Hemoccult negative stool. CBC is stable. This is a recurrent issue. The patient has known internal hemorrhoids. Pancreatic cystic lesions Recommendations * Bowel regimen, such as MiraLAX daily * No endoscopic intervention is necessary * Follow CBC * Outpatient GI follow-up with Dr. Doe. Thank you very much for this consultation. Please call/reconsult as necessary. Consult Acknowledgment - Thank you for your consult request.
[2017-02-06 00:16] VITALS: BP 122/82
--- NOTE | 2017-02-06 07:00 | PN- Housestaff ---
See Addendum ERIKA NIETO,SENG 02/06/17 0700: Subjective Follow-up For: Pacemaker dysfunction Hypokalemia Subjective: Patient is seen and examined while laying comfortably in bed. He does not endorse any acute complaints including chest pain, palpitation, shortness of breath, fever, chills, nausea, vomiting, abdominal pain, or rectal bleeding. Review of Systems Constitutional: Reports: no symptoms. Objective Last 24 Hrs of Vital Signs/I&O Vital Signs Date Time Temp Pulse Resp B/P B/P Pulse O2 O2 Flow FiO2 Mean Ox Delivery Rate 02/06 0828 97.8 59 20 120/70 95 Room Air 02/06 0016 97.7 50 18 122/82 94 Room Air 02/05 1746 99.0 70 18 122/68 92 Room Air Intake & Output 02/06 1600 02/06 0800 02/06 0000 Intake Total 550 760 Output Total Balance 550 760 Intake, IV 0 200 Intake, Oral 550 560 Number 0 1 Bowel Movements Physical Exam General Appearance: Alert, Oriented X3, Cooperative Cardiovascular: Regular Rate, Normal S1, Normal S2 Lungs: Clear to Auscultation, Normal Air Movement Abdomen: Normal Bowel Sounds, Soft, No Tenderness Neurological: Normal Speech, Strength at 5/5 X4 Ext, Normal Tone, Sensation Intact Extremities: No Edema, Normal Pulses, No Tenderness/Swelling Assessment/Plan Assessment: This is a 86-year-old very pleasant gentleman w/ a PMH of Afib ( not on AC sec to gi bleed) is being evaluated for bright red blood per rectum with history of constipation, hypokalemia, cardiac pacemaker abnormality. At the time of admission, pt had vitals temp 97.1, PA 74, RR 17, BP 128/61m 94% RA. Lab findigs indicate, WBC 7.6, Hb 11.8, MCV 97.9 ( elevated ), platelets 241 , Na 133, K 2.5 ( very low ). Sodium bicarbonate 32. Normal kidney function BUN 27, Sr cr 1.0, Normal liver function AST 20, ALT 26. 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 Failure to capture. Assessment and plan #BRBPR Episodes of transient rectal bleeding with patient not reporting any new episode since admission. About 80% of lower GI bleed is transient and self-limiting. Given the history of chronic constipation, this could possibly be hemorrhoidal bleeding. Other Possible etiology include diverticular bleeding. Patient has been following up with Dr Doe and he reports that his previous multiple colonoscopies were unremarkable. Of note, patient hemoglobin remained stable. Given the transient nature of his BRBPR and the fact that he is 86 yo with previous unrekable colonoscopy, no GI intervention is warranted. Will start patinet on Miralax for constipation. #Abnormal function of pacemaker Patient presented with EKG evidence of intermittent failure to capture. Interrogation of pacemaker was conducted cardiology today (appreciated). It is felt that most likely this is secondary to electrolyte imbalances as patient evidence of hypokalemia and hypomagnesemia. #Hypokalemia and hypomagnesemia Cool be secondary to poor nutrition. We'll continue aggressive replenishment to keep potassium above 4 and magnesium above 2. #Disposition Patient met PT goals today and warrants home PT. However, daughter strongly feels that considering patients age and the fact kamar he has cardiac cormoobidities, he should not be living by himself and should be at a intermediate. Patient is adamant he does not want any kind of assisted living, despite repeated persuasion regarding placement. When conversating with patient, he is very competent and well aware of his medical condition, he states that he has a very good friend who is nurse and who constantly checks on him. Will discuss with patient/family and case assistant regarding final dispostion. Otherwise, he is medically stable for discharge. Problem List: 1. Pacemaker malfunction 2. Hypokalemia Pain Ratin Pain Location: none Pain Goal: Remain pain free Pain Plan: per pain pathway Tomorrow's Labs & Rationales: none-discharge PRINCE EVANS MD 02/06/17 1155: Attending MD Review Statement Attending Statement Attending MD Statement: examined this patient, discuss w/resident/PA/PURIFICATION SUPERVISOR, agreed w/resident/PA/PURIFICATION SUPERVISOR, reviewed EMR data (avail), discussed with nursing, discussed with case mgmt, reviewed images, amended to note Attending Assessment/Plan: Patient seen and examined, feels overall better and offers no complaints. Patient had been seen by GI and they're recommending bowel regimen. Other than that no intervention was recommended. Patient will be [place] Dr. Lopez. His vital signs are stable. From physical therapy standpoint we are recommending rehabilitation versus home physical therapy. Patient's daughter wants to go to an assisted living but patient absolutely refuses. I had a lengthy discussion with him and I discussed at length about his hesitancy of going to assisted living. He claims that he doesn't mind getting help at home but he absolutely does not want to go to an assisted living. He lives in his house and gets good help in the house. He has no problem with walking. He has stairs in the house but he never goes upstairs. He he has a kitchen, bedroom bathroom everything on one level. He is sharp and able to make his own decisions. He absolutely refuses to go to assisted living. From medical standpoint he stable for discharge once the clarify the discharge plan. animal husbandry manager to discuss with his daughter.
--- NOTE | 2017-02-06 08:24 | Patient Discharge Instructions ---
Discharge Instructions General Discharge Information You were seen/treated for: Pacemaker dysfunction Blood per rectum Special Instructions: Please seek medical attention if you develop chest pain or palpitations Please follow up with your linoleum tile layer within 1 week Please follow up wtih your primary care within 1 week Please follow up with your stomach doctor (Dr Norris) if you develop rectal bleeding or notice any blood in your stool Acute Coronary Syndrome Inclusion Criteria At DC or during hospital stay patient has or had the following: ACS DIAGNOSIS No Discharge Core Measures Meds if any: Prescribed or Continued at Discharge Meds if any: NOT Prescribed or Continued at Discharge Congestive Heart Failure Inclusion Criteria At DC or during hospital stay patient has or had the following: CHF DIAGNOSIS No Discharge Core Measures Meds if any: Prescribed or Continued at Discharge Meds if any: NOT Prescribed or Continued at Discharge Cerebrovascular accident Inclusion Criteria At DC or during hospital stay patient has or had the following: CVA/TIA Diagnosis No Discharge Core Measures Meds if any: Prescribed or Continued at Discharge Meds if any: NOT Prescribed or Continued at Discharge Venous thromboembolism Inclusion Criteria VTE Diagnosis No VTE Type NONE VTE Confirmed by (Test) NONE Discharge Core Measures - Per Current guidelines, there needs to be overlap - treatment for the first 5 days of Warfarin therapy. - If discharged on Warfarin prior to 5 days of - overlap therapy, the patient will need to be - assessed for post discharge needs including - *Post discharge parental anticoagulation - *Warfarin and/or parental anticoagulation education - *Follow up date to check INR post discharge At least 5 days overlap therapy as Inpatient No Meds if any: Prescribed or Continued at Discharge Note: Overlap Therapy is Warfarin and Anticoagulant Meds if any: NOT Prescribed or Continued at Discharge
[2017-02-06 08:28] VITALS: BP 120/70
--- NOTE | 2017-02-06 09:45 | PN- Cardiology ---
Subjective Subjective: Stable without significant clinical cardiac change. Objective Vital Signs and I&Os Vital Signs Date Time Temp Pulse Resp B/P B/P Pulse O2 O2 Flow FiO2 Mean Ox Delivery Rate 02/07 828 97.8 59 20 120/70 95 Room Air 02/06 0016 97.7 50 18 122/82 94 Room Air 02/05 1746 99.0 70 18 122/68 92 Room Air 02/05 1035 Room Air Intake & Output 02/06 0802/06 0000 02/05 1600 02/05 0802/05 0000 Intake Total 550 760 380 370 3395 Output Total 300 Balance 550 760 480 100 700 Intake, IV 0 200 1000 Intake, Oral 550 560 480 100 Number 0 1 Bowel Movements Output, Urine 300 Patient 160 lb Weight Current Medications: Current Medications Sig/Sari Start time Last Medication Dose Route Stop Time Status Admin Allopurinol 300 MG DAILY 02/05 1000 AC 02/05 PO 0858 Atorvastatin Calcium 5 MG 1700 02/04 1700 AC 02/05 PO 1732 Folic Acid 1 MG DAILY 02/05 1000 AC 02/05 PO 0858 Insulin Aspart 0 TIDAC 02/04 1700 AC 02/05 SC 1731 Levothyroxine Sodium 0.05 MG DAILY AC 02/05 0700 AC 02/06 PO 0625 Magnesium Oxide 400 MG ONE ONE 02/05 1530 DC 02/05 PO 02/05 1531 1732 Magnesium Sulfate 1 GM ONCE ONE 02/06 0930 AC Dextrose/Water 100 ML IV 02/06 1329 Magnesium Sulfate 1 GM Q2H 02/05 1715 DC 02/05 Dextrose/Water 100 ML IV 02/05 2114 2026 Pantoprazole Sodium 40 MG DAILY 02/04 1611 AC 02/05 IV 0858 Patient Medication 1 ED .STK-MED ONE 02/05 1355 OK Teaching ED 02/05 1356 Potassium Chloride 40 MEQ ONCE ONE 02/05 1530 DC 02/05 PO 02/05 1531 1732 Results Last 48 Hrs of Labs/Mics: Laboratory Tests 02/06/17 0610: Anion Gap 9, Estimated GFR > 60, BUN/Creatinine Ratio 25.6 H, Magnesium 1.8 02/05/17 0758: Anion Gap 8, Estimated GFR > 60, BUN/Creatinine Ratio 28.0 H, Magnesium 1.2 L, CBC w Diff NO MAN DIFF REQ, RBC 3.37 L, MCV 100.4 H, MCH 33.5 H, RDW 15.3 H, MPV 7.6, Gran % 76.4 H, Lymphocytes % 15.4 L, Monocytes % 7.9, Eosinophils % 0 , Basophils % 0.3, Absolute Granulocytes 5.8, Absolute Lymphocytes 1.2, Absolute Monocytes 0.6, Absolute Eosinophils 0, Absolute Basophils 0, PUBS MCHC 33.4 02/05/17 0220: Lactic Acid 0.8 02/04/17 2043: Anion Gap 11, Estimated GFR > 60, BUN/Creatinine Ratio 25.0, CBC w Diff NO MAN DIFF REQ, RBC 3.63 L, MCV 100.3 H, MCH 33.4 H, RDW 15.5 H, MPV 8.2, Gran % 79.1 H, Lymphocytes % 12.4 L, Monocytes % 8.4, Eosinophils % 0, Basophils % 0.1, Absolute Granulocytes 5.9, Absolute Lymphocytes 0.9 L, Absolute Monocytes 0.6, Absolute Eosinophils 0, Absolute Basophils 0, [facility] 33.3 02/04/17 1355: Lactic Acid Cancelled 02/04/17 1335: Urine Color YEL, Urine Clarity CLEAR, Urine pH 7.0, Ur Specific [place] 1.010, Urine Protein NEG, Urine Ketones NEG, Urine Nitrite NEG, Urine Bilirubin NEG, Urine Urobilinogen 0.2, Ur Leukocyte Esterase NEG, Ur Microscopic SEDIMENT EXAMINED, Urine RBC 1-3, Urine WBC RARE, Ur Epithelial Cells RARE, Urine Hemoglobin TRACE-LYSED H, Urine Glucose NEG 02/04/17 1154: Anion Gap 14, Estimated GFR > 60, BUN/Creatinine Ratio 27.0 H, Glucose 187 H, Lactic Acid 1.6, Calcium 9.4, Magnesium 1.1 L, Total Bilirubin 0.7, AST 20, ALT 26, Alkaline Phosphatase 77, Troponin I 0.06, Total Protein 6.7, Albumin 4.0, Globulin 2.7, Albumin/Globulin Ratio 1.5, PT 10.5, INR 1.00, APTT 30, CBC w Diff NO MAN DIFF REQ, RBC 3.55 L, MCV 97.9 H, MCH 33.3 H, RDW 15.1 H, MPV 7.7, Gran % 83.6 H, Lymphocytes % 9.6 L, Monocytes % 6.7, Eosinophils % 0, Basophils % 0.1, Absolute Granulocytes 6.4, Absolute Lymphocytes 0.7 L, Absolute Monocytes 0.5, Absolute Eosinophils 0, Absolute Basophils 0, PUBS MCHC 34.0 Assessment/Plan Assessment/Plan Assessment: 1. Hypokalemia and hypomagnesemia, likely due to chlorthalidone 2. Permanent pacemaker with intermittent non-capture, likely exacerbated by hypokalemia and hypomagnesemia 3. Paroxysmal atrial fibrillation, not anticoagulated because of GI bleed Recommendations: -Over the last 24 hours, there has been no evidence of significant pacemaker abnormalities on the historiographer. -Anabolic parameters appear to be corrected -Out of bed as tolerated -Discharge planning pending -Patient will follow-up with me in the office in one to 2 weeks. A follow-up Holter monitor will be checked as an outpatient. -For now, I would not continue any diuretics in this patient's case. We will reassess his status in the office in 2 weeks. Follow-up laboratories at that time as well. Continue telemetry? No
[2017-02-06] MEDS ORDERED: MIRALAX17 G1 PO (09:55)
--- NOTE | 2017-02-06 12:58 | ECHOCARDIOGRAM REPORT ---
ZENY BELL Age: 86 : 1930 Gender: M Exam Date: 02/05/2017 15:17 Exam Location: [place] Ht (in): 63 Wt (lb): 160 BSA: 1.82 BP: 120 / 70 Ordering Physician: MILTON MONTES MD Referring Physician: Mu Lopez MD Technologist: Rosemary Javier RDCS Room Number: 171 Indications: AFIB/FLUTTER Rhythm: Sinus Technical Quality: Fair FINDINGS Left Ventricle Normal size left ventricle. No obvious regional wall motion abnormalities.abnormal septal motion. Normal left ventricular ejection fraction estimated at 55-60%. Right Ventricle Right ventricular dilatation. Right Atrium Right atrial dilatation. Left Atrium Moderate left atrial dilatation. Mitral Valve Mitral valve thickened. [id number] mitral regurgitation. Aortic Valve Trileaflet aortic valve. Diffuse thickening (sclerosis) of the aortic valve cusps without reduced excursion. No aortic stenosis. No aortic regurgitation. Tricuspid Valve Tricuspid valve not well visualized, grossly normal. Moderate tricuspid regurgitation. Right ventricular systolic pressure estimated at 40 mmHg. Pulmonic Valve Pulmonic valve not well visualized, grossly normal. [id number] pulmonic regurgitation. Pericardium No pericardial effusion. Great Vessels Aortic root and proximal ascending aorta not well visualized, grossly normal. CONCLUSIONS 1. Mild aortic sclerosis is present with no valvular stenosis or insufficiency. 2. Mitral leaflet thickening is present with mild to moderate mitral insufficiency and moderate left atrial enlargement. 3. There is no significant pericardial fluid present. 4. The left ventricualr chamber size and systolic function appear normal. Abnormal septal motion is present. 5. Mild to moderate enlargement of the right heart chambers is noted with moderate tricuspid insufficiency, mild to moderate pulmonic insufficiency and no significant pulmonary hypertension. 6. Pacemaker wires are present in the right heart chambers. MEASUREMENTS (Male / Female) Normal Values 2D ECHO LV Diastolic Diameter PLAX 4.8 cm 4.2 - 5.9 / 3.9 - 5.3 cm LV Systolic Diameter PLAX 3.2 cm 2.1 - 4.0 cm LV Fractional Shortening PLAX 33.3 % 25 - 46 % LV Ejection Fraction 2D Teich 61.9 % IVS Diastolic Thickness 1.0 cm LVPW Diastolic Thickness 1.1 cm LV Relative Wall Thickness 0.4 RV Internal Dim ED PLAX 3.1 cm 1.9 - 3.8 cm LVOT Diameter 1.8 cm Aortic Root Diameter 3.2 cm LA Systolic Diameter LX 5.0 cm 3.0 - 4.0 / 2.7 - 3.8 cm LA Volume 103.0 cm 18 - 58 / 22 - 52 cm Ascending Aorta Diameter 3.1 cm DOPPLER LVOT Peak Velocity 91.7 cm/s LVOT Peak Gradient 3.4 mmHg LVOT Mean Velocity 65.2 cm/s LVOT Mean Gradient 2.0 mmHg LVOT Velocity Time Integral 20.9 cm LVOT Stroke Volume 53.2 cm MV Peak Velocity 95.8 cm/s MV Peak Gradient 3.7 mmHg MV Mean Velocity 51.9 cm/s MV Mean Gradient 1.0 mmHg Mitral E Point Velocity 79.0 cm/s MV PHT Velocity 99.5 cm/s MV Deceleration [place] 292.0 cm/s MV Pressure Half Time 102.2 ms MV Area PHT 2.2 cm MV Deceleration Time 169.0 ms MR Peak Velocity 300.5 cm/s MR Peak Gradient 36.1 mmHg MR ERO PISA 0.4 cm MR Regurgitant Volume PISA 64.7 cm TR Peak Velocity 302.0 cm/s TR Peak Gradient 36.5 mmHg Right Atrial Pressure 5.0 mmHg Pulmonary Artery Systolic Pressu 41.5 mmHg Right Ventricular Systolic Press 41.5 mmHg PV Peak Velocity 97.9 cm/s PV Peak Gradient 3.8 mmHg PV Mean Velocity 65.9 cm/s PV Mean Gradient 2.0 mmHg PV Velocity Time Integral 21.5 cm LV E' Lateral Velocity 14.6 cm/s Mitral E to LV E' Lateral Ratio 5.4 LV E' Septal Velocity 7.9 cm/s Mitral E to LV E' Septal Ratio 10.0
--- NOTE | 2017-02-06 14:21 | Discharge Summary ---
Hospital Course Allergies: Coded Allergies: NO KNOWN ALLERGIES (04/25/16) Discharge Instructions Medications at Discharge Discharge Medications: Stop taking the following medications: Chlorthalidone (Chlorthalidone) 25 MG TABLET ORAL DAILY Continue taking these medications: Metformin HCl (Metformin HCl ER) 500 MG TAB.ER.24 1 Tablet ORAL DAILY Comments: NOT GIVEN IN THE HOSPITAL Pioglitazone HCl (Actos) 30 MG TABLET 1 Tablet ORAL DAILY Allopurinol (Allopurinol) 300 MG TABLET 1 Tablet ORAL DAILY Clonazepam (Clonazepam) 0.5 MG TABLET 0.5 Tablet ORAL TWICE DAILY Comments: Last Taken: 04/30/16 0.25MG DOSE GIVEN Time: 745 AM Folic Acid (Folic Acid) 1 MG TABLET 1 Tablet ORAL DAILY Levothyroxine Sodium (Levoxyl) 50 MCG TABLET 1 Tablet ORAL DAILY Comments: Last Taken: 04/30/16 Time: 620 AM Simvastatin (Simvastatin*) 10 MG TABLET 1 Tablet ORAL Every night Days = 90 Comments: NOT GIVEN IN THE HOSPITAL NOTE LIPITOR 5MG GIVEN 04/29/16 815 PM Omeprazole (Omeprazole) 20 MG CAPSULE.DR 1 Capsule ORAL DAILY Fluticasone Propionate (Fluticasone Propionate) 50 MCG/ACTUATION SPRAY.SUSP 2 [place] Both sides of nose DAILY Days = 30 Start taking the following new medications: Polyethylene Glycol 3350 (Miralax) 17 GRAM POWD.PACK 17 Gram ORAL DAILY as needed for CONSTIPATION Days = 30 No Refills
[2017-02-06 15:46] VITALS: BP 118/62
[2017-02-07 00:01] VITALS: BP 140/80
--- NOTE | 2017-02-07 07:29 | PN- Housestaff ---
ERIKA NIETO,SENG 02/07/17 0729: Subjective Follow-up For: BRPR PACEMAKER MULFUNCTION Subjective: Patient seen and examined at bedside. He does not endorse any acute complaints including chest pain, shortness of breath, palpitation, fever, chills, nausea, vomiting, abdominal pain or bloody stools. No acute overnight event reported by nursing staff Review of Systems Constitutional: Reports: no symptoms. Objective Last 24 Hrs of Vital Signs/I&O Vital Signs Date Time Temp Pulse Resp B/P B/P Pulse O2 O2 Flow FiO2 Mean Ox Delivery Rate 02/07 0852 98.3 63 20 130/78 97 Room Air 02/07 0001 98.1 78 20 140/80 96 Room Air Intake & Output 02/07 1600 02/07 0800 02/07 0000 Intake Total 720 240 120 Output Total 300 Balance 720 240 -180 Intake, Oral 720 240 120 Output, Urine 300 Physical Exam General Appearance: Alert, Oriented X3, Cooperative Cardiovascular: Regular Rate, Normal S1, Normal S2 Lungs: Clear to Auscultation, Normal Air Movement Abdomen: Normal Bowel Sounds, Soft, No Tenderness Neurological: Normal Gait, Normal Speech, Sensation Intact Assessment/Plan Assessment: This is a 86-year-old very pleasant gentleman w/ a PMH of Afib ( not on AC sec to gi bleed) is being evaluated for bright red blood per rectum with history of constipation, hypokalemia, cardiac pacemaker abnormality. At the time of admission, pt had vitals temp 97.1, CA 74, RR 17, BP 128/61m 94% RA. Lab findigs indicate, WBC 7.6, Hb 11.8, MCV 97.9 ( elevated ), platelets 241 , Na 133, K 2.5 ( very low ). Sodium bicarbonate 32. Normal kidney function BUN 27, Sr cr 1.0, Normal liver function AST 20, ALT 26. 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 Failure to capture. Assessment and plan Patient medically stable today for discharge. No overnight telemetry events were noted including no arrhythmias. Patient is to be discharged with home PT and follow-up with primary care physician and Dr. Guardado. Problem List: 1. Pacemaker malfunction Pain Ratin Pain Location: NONE Pain Goal: Remain pain free Pain Plan: PER PAIN PATHWAY Tomorrow's Labs & Rationales: NONE:DISCHARGE NATHAN MD,PRINCE 02/07/17 1133: Attending MD Review Statement Attending Statement Attending MD Statement: examined this patient, discuss w/resident/PA/DOOR MANAGER, agreed w/resident/PA/DOOR MANAGER, reviewed EMR data (avail), discussed with nursing, discussed with case mgmt, reviewed images, amended to note Attending Assessment/Plan: Patient seen and examined feels well. Last night he had a panic attack and was feeling anxious about the fact that his daughter might put him in a care home. This am he is feeling better. Vital Signs Date Time Temp Pulse Resp B/P B/P Pulse O2 O2 Flow FiO2 Mean Ox Delivery Rate 02/07 0852 98.3 63 20 130/78 97 Room Air 02/07 0001 98.1 78 20 140/80 96 Room Air 02/06 1546 98.4 59 18 118/62 98 on exam; aox3, nad. cv; s1,s2, rrr resp; clear abd; soft, nt, bs+ ext; no edema. Laboratory Tests 02/07 06 Chemistry Sodium (137 - 145 mmol/L) 138 Potassium (3.5 - 5.1 mmol/L) 3.7 Chloride (98 - 107 mmol/L) 94 L Carbon Dioxide (22 - 30 mmol/L) 34 H Anion Gap (5 - 16) 10 BUN (9 - 20 mg/dL) 19 Creatinine (0.7 - 1.2 mg/dL) 0.9 Estimated GFR (>60 ml/min) > 60 BUN/Creatinine Ratio (7 - 25 %) 21.1 Magnesium (1.6 - 2.3 mg/dL) 1.7 A/P; 86 y/o M with pmh sig for Chronic Afib ( tachy-vanessa ) not on any AC due to GI bleed(diverticular bleed), s/p single lead pacemaker implantation(pt has chronic afib), valvular heart disease, uncharecterized pancreatic lesion, admitted with patient complaining of bright red blood per rectum although stool guaiac negative. Initially pacer was found to be not capturing well secondary to Abdomen obese. All electrolytes have been corrected. Chlorthalidone has been discontinued. Blood pressure is running within the normal range off of all antihypertensives. Patient has been followed by cardiology and is stable from cardiac standpoint with no telemetry events overnight. Patient was resumed on his clonazepam for anxiety. He is medically stable for discharge. Patient absolutely refuses to go to any care home or to assisted living and wants to go home. He is in the right state of mind to make his own decisions and claims that he has all the support services available at home. He'll be getting home health services. He' ll be discharged home today.
[2017-02-07 08:52] VITALS: BP 130/78
--- NOTE | 2017-02-07 19:11 | Discharge Summary ---
See Addendum Visit Information Visit Dates Admission Date: 02/04/17 Discharge Date: 02/08/17 Hospital Course Course Attending Physician: PRINCE EVANS MD Primary Care Physician: TANIA CONNOLLY MD Consulting Request: Consulting Specialty: Cardiology Hospital Course: This is a 86-year-old gentleman with a past medical history significant for diabetes, hypertension atrial fibrillation not on anticoagulation due to history of falls and GI bleed, permanent pacemaker placement, previous TIAs presented to [place] [facility] with complaints of generalized fatigue with loss of appetite and episode of rectal bleeding. Vital signs on presentation: Temperature 97.1, pulse 74, respiratory rate 17, BP 120/61, saturation 94% on room air. Physical Exam General Appearance Alert, Oriented X3, Cooperative, No Acute Distress Skin No Rashes, No Breakdown Skin Temp/Moisture Exam: Warm/Dry Sepsis Skin Exam (color): Normal for Ethnicity HEENT Atraumatic, PERRLA, EOMI, oral ulcers multiple mucous membranes dry Neck Supple, No JVD, No thryomegaly, +2 Carotid Pulse wo Bruit Lymphatic Axillary nl, Cervical nl Cardiovascular Regular Rate, Normal S1, Normal S2, No Murmurs Lungs Clear to Auscultation, Normal Air Movement Abdomen Normal Bowel Sounds, Soft, No Tenderness, No Hepatospenomegaly, No Masses, distention w/ no masses Neurological Normal Speech, Strength at 5/5 X4 Ext, Normal Tone, Sensation Intact, Cranial Nerves 3-12 NL, Reflexes 2+ Extremities No Clubbing, No Cyanosis, No Edema, Normal Pulses Vascular Normal Pulses, Pulses Symmetrical Laboratory Tests: 02/04/17 1335: Urine Color YEL, Urine Clarity CLEAR, Urine pH 7.0, Ur Specific [place] 1.010, Urine Protein NEG, Urine Ketones NEG, Urine Nitrite NEG, Urine Bilirubin NEG, Urine Urobilinogen 0.2, Ur Leukocyte Esterase NEG, Ur Microscopic SEDIMENT EXAMINED, Urine RBC 1-3, Urine WBC RARE, Ur Epithelial Cells RARE, Urine Hemoglobin TRACE-LYSED H, Urine Glucose NEG 02/04/17 1154: Anion Gap 14, Estimated GFR > 60, BUN/Creatinine Ratio 27.0 H, Glucose 187 H, Lactic Acid 1.6, Calcium 9.4, Total Bilirubin 0.7, AST 20, ALT 26, Alkaline Phosphatase 77, Troponin I 0.06, Total Protein 6.7, Albumin 4.0, Globulin 2.7, Albumin/Globulin Ratio 1.5, PT 10.5, INR 1.00, APTT 30, CBC w Diff NO MAN DIFF REQ, RBC 3.55 L, MCV 97.9 H, MCH 33.3 H, RDW 15.1 H, MPV 7.7, Gran % 83.6 H , Lymphocytes % 9.6 L, Monocytes % 6.7, Eosinophils % 0, Basophils % 0.1, Absolute Granulocytes 6.4, Absolute Lymphocytes 0.7 L, Absolute Monocytes 0.5, Absolute Eosinophils 0, Absolute Basophils 0, PUBS MCHC 34.0 EKG:Paced rythm with intermittent non capture. Pt was then admitted to Telemetry floor for treatment and management of electrolyte imbalance and evaluation of malfunction pacemaker. Pt was hospitalized for 5 days. During hospital stay, the following issues were addressed: #Single episode of hematochezia Single episode of hematochezia, in the setting of constipation, with Hemoccult negative stools. CBC remained stable during hospital stay. He is known to have a history of internal hemorrhoids and is followed by Dr Doe (GI). Pt was started on Miralax per GI reccomendation who felt colonoscopy or any procedural intervention was not necessary. Upon discharge, he was given instructions to continue following up with GI services (Dr. Doe) #Intermittent non capturing pacemaker Patient presented with EKG evidence of intermittent failure to capture. Interrogation of pacemaker was conducted by cardiology and [employer] tech. No intrinsic failure of the pacemaker was detected. Cardiology felt that the non capturing was most likely secondary to the hypo-magnesium and hypokalemia. #Hypokalemia and hypomagnesemia Pt has hx of hypokalemia and is on home potassium supplementation (20 meq).The chlorthalidone home med could be the cause of his hypokalemia. He may also have malnutrition which can cause hypomagnesemia nad worsens his hypokalemia. Patient reports not eating well, alcohol drinking, and lives by himself. Patient continued to have low potassium and low magnesium levels during hospital stay requiring replenishment. Review of medication also found that he is on chronic PPI which has been linked with hypomagnesemia in some patients. Therefore, patient chlorthalidone was stopped and he was instructed not to take it anymore at home , his PPI was also stopped and was replaced by famotidine. Patient was also provided with [facility] home services help him with his health and nutrition. He was also given a prescription for BEP and magnesium with results being cc to Dr. Lopez (his church organist). Allergies: Coded Allergies: NO KNOWN ALLERGIES (04/25/16) Disposition Summary Disposition Principal Diagnosis: Electrolyte derangements Additional Diagnosis: Pacemaker malfunctioning. Discharge Disposition: home health services Discharge Instructions General Discharge Information Code Status: Full Code Patient's Diet: regular Patient's Activity: TOLERATED Follow-Up Instructions/Appts: Pt is to f/u with Dr Lopez within 1 week Pt is to f/u with his PCP within 1 week Pt is to f/u with his GI doctor Medications at Discharge Discharge Medications: Stop taking the following medications: Chlorthalidone (Chlorthalidone) 25 MG TABLET ORAL DAILY Continue taking these medications: Metformin HCl (Metformin HCl ER) 500 MG TAB.ER.24 1 Tablet ORAL DAILY Comments: NOT GIVEN IN THE HOSPITAL Pioglitazone HCl (Actos) 30 MG TABLET 1 Tablet ORAL DAILY Comments: Last Taken:NOT GIVEN IN THE HOSPITAL Time: Allopurinol (Allopurinol) 300 MG TABLET 1 Tablet ORAL DAILY Comments: Last Taken:02/07/17 Time:11 AM Clonazepam (Clonazepam) 0.5 MG TABLET 0.5 Tablet ORAL TWICE DAILY Comments: Last Taken: 02/06/17 Time: 11 PM Folic Acid (Folic Acid) 1 MG TABLET 1 Tablet ORAL DAILY Comments: Last Taken:02/07/17 Time: 11 AM Levothyroxine Sodium (Levoxyl) 50 MCG TABLET 1 Tablet ORAL DAILY Comments: Last Taken: 02/08/17 Time: 6:15 AM Simvastatin (Simvastatin*) 10 MG TABLET 1 Tablet ORAL Every night Days = 90 Comments: NOT GIVEN IN THE HOSPITAL NOTE LIPITOR 5MG GIVEN 02/06/17 AT 7 PM Omeprazole (Omeprazole) 20 MG CAPSULE. 1 Capsule ORAL DAILY Comments: Last Taken:NOT GIVEN IN THE HOSPITAL NOTE: PROTONIX GIVEN 02/07/17 Fluticasone Propionate (Fluticasone Propionate) 50 MCG/ACTUATION SPRAY.SUSP 2 [place] Both sides of nose DAILY Days = 30 Comments: Last Taken:NOT GIVEN IN THE HOSPITAL Time: Start taking the following new medications: Polyethylene Glycol 3350 (Miralax) 17 GRAM POWD.PACK 17 Gram ORAL DAILY as needed for CONSTIPATION Days = 30 No Refills Comments: Last Taken: 02/08/17 Time: 10:00 AM Copies To: MOHSEN NIETO,TANIA
--- NOTE | 2017-02-07 23:27 | NUR ---
LATE NURSING ENTRY: 02/07/17 1800 IV REMOVED, PATIENT DRESSED IN HOME CLOTHES, DISCHARGE PAPERWORK GIVEN AND INSTRUCTIONS EXPLAINED TO PATIENT AND HIS GRANDSON. BOTH VERBALIZED UNDERSTANDING, WC CALLED FOR DISCHARGE. PATIENT GRANDSON DOWN TO MOVE CAR CLOSE TO MAIN EXIT., PATIENT DECIDED ON EATING DINNER BEFORE HE LEAVES. DINNEWR TRAY PROVIDED. GRANDSON LEAVES THE FLOOR W/O COMMUNICATING HES PLANS WITH ANY STAFF MEMBERS NOR THE PATIENT. PHONE CALL RECEIVED BY FLOOR SCOURING TRAIN OPERATOR TARA, FROM PATIENT DAUGHTERE, THAT FAMILY IS NOT ABLE TO ROTARY HELPER PATIENT TODAY. RN SUPERVISER, HELP DESK INTERNSHIP MD ERIKA RABAGO AND CC RN ESEQUIEL NOTIFIED. DISCHARGE ORDER DISCONTINUED. PATIENT INFORMED AND UNDERSTANDS SITUATION AGREED TO STAY TILL NEXT DAY. ORAL SUPPORT GIVEN, WCTM. D/C
[2017-02-08 00:59] VITALS: BP 122/72
[2017-02-08 08:12] VITALS: BP 112/60
--- NOTE | 2017-02-08 09:56 | PN- Housestaff ---
ERIKA NIETO,SENG 02/08/17 0956: Subjective Follow-up For: pacemaker dysfunction Subjective: Pt is seen and examined at bedside. He offers no complains including no fever/ chills,nausea/vomiting, chestpain/palpitation,sob, focal neurological defect, abdomial pain or dysuria. No acute o/n event. He is eager for discharge. Review of Systems Constitutional: Reports: no symptoms. Objective Last 24 Hrs of Vital Signs/I&O Vital Signs Date Time Temp Pulse Resp B/P B/P Pulse O2 O2 Flow FiO2 Mean Ox Delivery Rate 02/09 812 98.3 73 20 112/60 95 Room Air 02/08 0059 98.6 68 20 122/72 95 Room Air 02/08 0000 Room Air Intake & Output 02/08 1600 02/08 0800 02/08 0000 Intake Total 400 Output Total Balance 400 Intake, IV 0 Intake, Oral 400 Number 1 Bowel Movements Physical Exam General Appearance: Alert, Oriented X3, Cooperative Cardiovascular: Regular Rate, Normal S1, Normal S2 Lungs: Clear to Auscultation, Normal Air Movement Abdomen: Normal Bowel Sounds, Soft, No Tenderness Neurological: Normal Speech, Normal Tone, Sensation Intact Extremities: No Clubbing, No Cyanosis, No Edema Vascular: Normal Pulses, Pulses Symmetrical Current Medications: Current Medications Sig/Sari Start time Last Medication Dose Route Stop Time Status Admin Allopurinol 300 MG DAILY 02/05 1000 DCD 02/07 PO 1116 Atorvastatin Calcium 5 MG 1700 02/04 1700 DCD 02/07 PO 1652 Clonazepam 0.5 MG BID PRN 02/06 2315 DCD 02/06 PO 02/13 2314 2318 Folic Acid 1 MG DAILY 02/05 1000 DCD 02/07 PO 1116 Insulin Aspart 0 TIDAC 02/04 1700 DCD 02/07 SC 1246 Levothyroxine Sodium 0.05 MG DAILY AC 02/05 0700 DCD 02/08 PO 0637 Pantoprazole Sodium 40 MG DAILY 02/04 1611 DCD 02/07 IV 1115 Polyethylene Glycol 17 GM DAILY 02/06 1000 DCD PO Assessment/Plan Assessment: This is a 86-year-old very pleasant gentleman w/ a PMH of Afib ( not on AC sec to gi bleed) is being evaluated for bright red blood per rectum with history of constipation, hypokalemia, cardiac pacemaker abnormality. At the time of admission, pt had vitals temp 97.1, PA 74, RR 17, BP 128/61m 94% RA. Lab findigs indicate, WBC 7.6, Hb 11.8, MCV 97.9 ( elevated ), platelets 241 , Na 133, K 2.5 ( very low ). Sodium bicarbonate 32. Normal kidney function BUN 27, Sr cr 1.0, Normal liver function AST 20, ALT 26. 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 Failure to capture. Assessment and plan Patient medically stable today for discharge. No overnight telemetry events were noted including no arrhythmias. Patient is to be discharged with home PT and follow-up with primary care physician and Dr. Guardado. Problem List: 1. Pacemaker malfunction Pain Ratin Pain Location: none Pain Goal: Remain pain free Pain Plan: none Tomorrow's Labs & Rationales: none-discharge PRINCE EVANS MD 02/08/17 1107: Attending MD Review Statement Attending Statement Attending MD Statement: examined this patient, discuss w/resident/PA/MEDICAL RECEPTIONIST MEDICAL ASSISTANT, agreed w/resident/PA/MEDICAL RECEPTIONIST MEDICAL ASSISTANT, discussed with family, reviewed EMR data (avail), discussed with nursing, discussed with case mgmt, amended to note Attending Assessment/Plan: Patient seen and examined, feels well. He has been waiting to get discharged. Yesterday he was about to leave but his grandson came and did not bring him home as there was no ride. This morning he is feeling well with no overnight events. Patient's daughter is coming to pick him up today. He is otherwise all set for discharge home with home services today.
--- NOTE | 2017-02-08 10:11 | Discharge Summary ---
Visit Information Visit Dates Admission Date: 02/04/17 Hospital Course Allergies: Coded Allergies: NO KNOWN ALLERGIES (04/25/16) Discharge Instructions Medications at Discharge Discharge Medications: Stop taking the following medications: Chlorthalidone (Chlorthalidone) 25 MG TABLET ORAL DAILY Continue taking these medications: Metformin HCl (Metformin HCl ER) 500 MG TAB.ER.24 1 Tablet ORAL DAILY Comments: NOT GIVEN IN THE HOSPITAL Pioglitazone HCl (Actos) 30 MG TABLET 1 Tablet ORAL DAILY Comments: Last Taken:NOT GIVEN IN THE HOSPITAL Time: Allopurinol (Allopurinol) 300 MG TABLET 1 Tablet ORAL DAILY Comments: Last Taken:02/07/17 Time:11 AM Clonazepam (Clonazepam) 0.5 MG TABLET 0.5 Tablet ORAL TWICE DAILY Comments: Last Taken: 02/06/17 Time: 11 PM Folic Acid (Folic Acid) 1 MG TABLET 1 Tablet ORAL DAILY Comments: Last Taken:02/07/17 Time: 11 AM Levothyroxine Sodium (Levoxyl) 50 MCG TABLET 1 Tablet ORAL DAILY Comments: Last Taken: 02/07/17 Time: 6 AM Simvastatin (Simvastatin*) 10 MG TABLET 1 Tablet ORAL Every night Days = 90 Comments: NOT GIVEN IN THE HOSPITAL NOTE LIPITOR 5MG GIVEN 02/06/17 AT 7 PM Omeprazole (Omeprazole) 20 MG CAPSULE.DR 1 Capsule ORAL DAILY Comments: Last Taken:NOT GIVEN IN THE HOSPITAL NOTE: PROTONIX GIVEN 02/07/17 Fluticasone Propionate (Fluticasone Propionate) 50 MCG/ACTUATION SPRAY.SUSP 2 [place] Both sides of nose DAILY Days = 30 Comments: Last Taken:NOT GIVEN IN THE HOSPITAL Time: Start taking the following new medications: Polyethylene Glycol 3350 (Miralax) 17 GRAM POWD.PACK 17 Gram ORAL DAILY as needed for CONSTIPATION Days = 30 No Refills
--- NOTE | 2017-02-08 11:07 | PN- Cardiology ---
Subjective Subjective: Stable without new symptoms. Awaiting discharge Objective Vital Signs and I&Os Vital Signs Date Time Temp Pulse Resp B/P B/P Pulse O2 O2 Flow FiO2 Mean Ox Delivery Rate 02/09 812 98.3 73 20 112/60 95 Room Air 02/08 0059 98.6 68 20 122/72 95 Room Air 02/08 0000 Room Air Intake & Output 02/08 1600 02/08 0800 02/08 0000 02/07 1600 02/07 0800 02/07 0000 Intake Total 400 720 240 120 Output Total 300 Balance 400 720 240 -180 Intake, IV 0 Intake, Oral 400 720 240 120 Number 1 Bowel Movements Output, Urine 300 Current Medications: Current Medications Sig/Sari Start time Last Medication Dose Route Stop Time Status Admin Allopurinol 300 MG DAILY 02/05 1000 AC 02/07 PO 1116 Atorvastatin Calcium 5 MG 1700 02/04 1700 AC 02/07 PO 1652 Clonazepam 0.5 MG BID PRN 02/06 2315 AC 02/06 PO 02/13 2314 2318 Folic Acid 1 MG DAILY 02/05 1000 AC 02/07 PO 1116 Insulin Aspart 0 TIDAC 02/04 1700 AC 02/07 SC 1246 Levothyroxine Sodium 0.05 MG DAILY AC 02/05 0700 AC 02/08 PO 0637 Magnesium Oxide 400 MG ONE ONE 02/07 1615 DC 02/07 PO 02/07 161 1652 Pantoprazole Sodium 40 MG DAILY 02/04 161 AC 02/07 IV 1115 Patient Medication 1 ED .STK-MED ONE 02/07 1351 DC Teaching ED 02/07 1352 Polyethylene Glycol 17 GM DAILY 02/06 1000 AC PO Results Last 48 Hrs of Labs/Mics: Laboratory Tests 02/07/17 0605: Anion Gap 10, Estimated GFR > 60, BUN/Creatinine Ratio 21.1, Magnesium 1.7 Assessment/Plan Assessment/Plan Assessment: 1. Hypokalemia and hypomagnesemia, likely due to chlorthalidone 2. Permanent pacemaker with intermittent non-capture, likely exacerbated by hypokalemia and hypomagnesemia 3. Paroxysmal atrial fibrillation, not anticoagulated because of GI bleed Recommendations: -Over the last 24 hours, there has been no evidence of significant pacemaker abnormalities on the nursing support worker. -Patient will follow-up with me in the office in one to 2 weeks. A follow-up Holter monitor will be checked as an outpatient. - Discussed with the patient Continue telemetry? No
== END 2017-02-08 11:00 | disposition home health service (06) | DRG 641 ==
LOC: DELPENDDIS → ERH 10:49 → 1NO 14:27 → ERHI 14:27 → ENRESERV 17:44 → 1NO 18:40 → ENPENDDIS 02-06 11:26 → 1NO 02-08 08:49
PROVIDERS: Emergency Medicine; Internal Medicine; ADMIT Internal Medicine
DX: E87.6 Hypokalemia (principal); E86.0 Dehydration; I49.5 Sick sinus syndrome; T82.897A Other specified complication of cardiac prosthetic devices, implants and grafts, initial encounter; I48.2 Chronic atrial fibrillation; C61 Malignant neoplasm of prostate; I10 Essential (primary) hypertension; I34.0 Nonrheumatic mitral (valve) insufficiency; E11.9 Type 2 diabetes mellitus without complications; E83.42 Hypomagnesemia; K20.9 Esophagitis, unspecified; E03.9 Hypothyroidism, unspecified; D64.9 Anemia, unspecified; I35.0 Nonrheumatic aortic (valve) stenosis; T50.2X5A Adverse effect of carbonic-anhydrase inhibitors, benzothiadiazides and other diuretics, initial encounter; E78.5 Hyperlipidemia, unspecified; F41.8 Other specified anxiety disorders; K44.9 Diaphragmatic hernia without obstruction or gangrene; M10.9 Gout, unspecified; Y92.009 Unspecified place in unspecified non-institutional (private) residence as the place of occurrence of the external cause; K59.00 Constipation, unspecified; Z85.00 Personal history of malignant neoplasm of unspecified digestive organ; Z86.73 Personal history of transient ischemic attack (TIA), and cerebral infarction without residual deficits; K57.90 Diverticulosis of intestine, part unspecified, without perforation or abscess without bleeding; K21.9 Gastro-esophageal reflux disease without esophagitis
CPT/HCPCS: 1NP; 36415; 74177; 81001; 82436; 93005; 93010; 93306; 96361; 96374; 96376; 97112-GO; 97116-GO; J3490; J7040